=== PATIENT | male | born 1960 | race Caucasian/White ===

== ENCOUNTER 2017-10-26 14:22 | Emergency (ER) | payer MEDICAID, SELFPAY ==
[2017-10-26 14:23] VITALS: BP 167/96; PULSE 94; RESP 16; TEMP 36.9; O2SAT 98; BMI 23.7
--- NOTE | 2017-10-26 16:27 | ED.VISSUMM ---
- ER Visit Summary Date of Service: 10/26/17 Chief Complaint: Dental pain History of Present Illness: The patient is a 57 M presenting for evaluation secondary dental pain. Patient states over the course of the last 1 week he has had right maxillary upper facial gum and lip swelling. Patient reports that there is continued increasing pain associated with this worse with palpation and eating and drinking. He denies any presence of fevers. Physical Examination: Physical exam remarkable for HEENT exam. Patient has evidence of some upper lip swelling predominantly on the right. Oral exam shows focal gum swelling above the patient's right maxillary incisor with likely underlying fluctuance. Soft sublingual space, no trismus. Normal posterior oropharynx. Test Results: None indicated Emergency Department Course and Treatment: Patient presented for evaluation secondary to what appears to be a dental abscess. Patient was verbally consented for incision and drainage with an 18-gauge needle. I incised the area with an 18-gauge needle and a large amount of purulent material was expressed. Patient tolerated this with some difficulty. Patient will be placed on a course of clindamycin due to a penicillin allergy, Naprosyn, and Slayton for treatment of pain. He was given a list of dentists with which to follow-up Disposition: Discharge Impression: 1. Dental abscess 2. I&D by ED physician This note was generated with [employer] dictation software. It may contain incorrect words, spelling, and punctuation that were not noted in review of the chart prior to signing ED Disposition - Plan for ED Patient: Disposition: Home or Assisted Living Chief Complaint: Dental Diagnosis: Dental abscess Instructions: Dental Abscess Prescriptions: Hydrocodone Bitart/Apap 5-325 [Slayton 5MG-325MG] 1 tab PO Q6H PRN PRN 3 Days #12 tab PRN Reason: Pain Naproxen [Naprosyn] 500 mg PO BID PRN #20 tab Clindamycin [Cleocin] 300 mg PO 4X/DAY #80 cap Referrals: Dentist,Your [STAFF PHYSICIAN] -
--- NOTE | 2017-10-26 16:31 | ED.DCSUM_ITS ---
- ER Visit Summary Date of Service: 10/26/17 Chief Complaint: Dental pain History of Present Illness: The patient is a 57 M presenting for evaluation secondary dental pain. Patient states over the course of the last 1 week he has had right maxillary upper facial gum and lip swelling. Patient reports that there is continued increasing pain associated with this worse with palpation and eating and drinking. He denies any presence of fevers. Physical Examination: Physical exam remarkable for HEENT exam. Patient has evidence of some upper lip swelling predominantly on the right. Oral exam shows focal gum swelling above the patient's right maxillary incisor with likely underlying fluctuance. Soft sublingual space, no trismus. Normal posterior oropharynx. Test Results: None indicated Emergency Department Course and Treatment: Patient presented for evaluation secondary to what appears to be a dental abscess. Patient was verbally consented for incision and drainage with an 18-gauge needle. I incised the area with an 18-gauge needle and a large amount of purulent material was expressed. Patient tolerated this with some difficulty. Patient will be placed on a course of clindamycin due to a penicillin allergy, Naprosyn, and [place] for treatment of pain. He was given a list of dentists with which to follow-up Disposition: Discharge Impression: 1. Dental abscess 2. I&D by ED physician This note was generated with [employer] dictation software. It may contain incorrect words, spelling, and punctuation that were not noted in review of the chart prior to signing ED Disposition - Plan for ED Patient: Disposition: Home or Assisted Living Chief Complaint: Dental Diagnosis: Dental abscess Instructions: Dental Abscess Prescriptions: Hydrocodone Bitart/Apap 5-325 [[place]lake 5MG-325MG] 1 tab PO Q6H PRN PRN 3 Days #12 tab PRN Reason: Pain Naproxen [Naprosyn] 500 mg PO BID PRN #20 tab Clindamycin [Cleocin] 300 mg PO 4X/DAY #80 cap Referrals: Dentist,Your [STAFF PHYSICIAN] -
[2017-10-26] MEDS: Naproxen 500 MG Tablet PO (16:36)
[2017-10-26] MEDS: Clindamycin HCl 150 MG Capsule 300 MG PO (16:36)
== END 2017-10-26 16:50 | disposition home or self-care (01) ==
PROVIDERS: Emergency Provider Emergency Medicine; Family Provider Family Medicine; PCP Family Medicine
DX: K04.7 Periapical abscess without sinus (principal); Z88.0 Allergy status to penicillin
CPT/HCPCS: 41800; 99283

== ENCOUNTER 2017-12-07 06:43 | Emergency (ER) | payer MEDICAID, SELFPAY ==
[2017-12-07 06:45] VITALS: BP 166/89; PULSE 66; RESP 21; TEMP 36.4; O2SAT 98; BMI 26.3
[2017-12-07] MEDS: HYDROmorphone 1 MG/ML Syringe IV (06:57)
[2017-12-07] MEDS: 0.9% Normal Saline 1,000 ML 150 ML IV (06:57)
[2017-12-07] MEDS: Aspirin 81 MG TAB.CHEW 324 MG PO (06:57)
[2017-12-07] MEDS: Ondansetron 4 MG/2 ML Vial IV (06:57)
--- NOTE | 2017-12-07 06:58 | ED.DCSUM_ITS ---
- ER Visit Summary Date of Service: 12/07/17 Chief Complaint: [Chest pain] History of Present Illness: The patient is a 57 M [presents the emergency department complaint of chest discomfort started this morning about 2 hours ago. Patient states that he has pain more in his left back and upper abdomen that started somewhat suddenly. Patient has never had discomfort like this before. Patient also has been having pain in his hands for several months and has been seeing his primary care physician for this. Patient recently was started on prednisone as well as meloxicam and recently started on lisinopril for hypertension. Patient denies recent travel or surgery. Patient denies nausea or vomiting. Patient has not had any fever. He has not had a cough. Patient rates his pain an 8 out of 10 describes it as sharp and stabbing.] Physical Examination: [HEENT-PERRLA, EOMI. Cranial nerves II through XII grossly intact. TMs clear. Mucous membranes moist. No adenopathy. Cardiovascular-regular rate and rhythm without murmur or ectopy Lungs-clear to auscultation, chest wall stable without crepitus or subcu emphysema Abdomen-normoactive bowel sounds, soft. Patient has some tenderness in the epigastric region and left lower quadrant. There is no rebound, rigidity, or perineal signs. Patient does have some CVA tenderness on the left. Extremities-intact ?4, normal range of motion, normal pulses, atraumatic] Test Results: [EKG obtained on arrival shows sinus rhythm with a ventricular rate of 70 bpm with old anterior septal infarct noted. When compared with prior EKG from 2012 the Q waves anteriorly are new.] Emergency Department Course and Treatment: [Patient received aspirin in the emergency department. Lab workup and CT imaging of the abdomen and pelvis was ordered as well as a chest x-ray. CARE patient will be turned over to morning physician awaiting lab results as well as imaging results and final disposition] Treatment Plan: [] Disposition: [] Impression: [] This note was generated with [employer] dictation software. It may contain incorrect words, spelling, and punctuation that were not noted in review of the chart prior to signing ED Disposition - Plan for ED Patient: Chief Complaint: Chest Pain Referrals: Alex Ortega NP-C [Primary Care Provider] -
--- NOTE | 2017-12-07 07:08 | ED.RN ---
MD AWARE OF MONITOR RHYTHM.
[2017-12-07 07:09] LABS: Absolute Lymphocyte Count 2.08 X10^3/ul (0.83-4.51); Basophil# 0.03 X10^3/uL; Basophil% 0.4 % (0-1); Eosinophil# 0.41 X10^3/uL; Eosinophils% 5.9 % (0-5); Hemoglobin 14.9 g/dl (13.0-16.5); Lymphocyte # 2.08 X10^3/ul (4.0); Lymphocyte % 29.8 % (19-41); Mean Corp Hgb Conc 33.9 g/gl (32-36); Mean Corpuscular Hgb 30.8 pg (27.0-32.0); Mean Corpuscular Volume 91.1 fL (80-94); Mean Platelet Vol. 9.8 fl (6.2-12.0); Monocyte# 0.49 X10^3/uL; Neutrophil # 3.96 X10^3/uL (2.7-7.7); Neutrophil % 56.8 % (47-70); POSITIVE COUNT NO; POSITIVE DIFFERENTIAL NO; POSITIVE MORPHOLOGY NO; Platelet Count 208 K/mm3 (150-450); RBC Distribution Width CV 12.4 % (11.6-14.6); RBC Distribution Width SD 41.4 fl (35.1-43.9); Red Blood Count 4.83 M/mm3 (4.6-6.2)
[2017-12-07 07:19] LABS: Anion Gap 8 (5-15); BUN 19 mg/dL (7-18); BUN/Creat Ratio 20.2 RATIO (10-20); Calcium,Total 8.6 mg/dL (8.5-10.1); Chloride 107 mmol/L (98-107); Creatinine, Serum 0.94 mg/dL (0.70-1.30); EST Glomerular Filtration Rate 87 mL/min (>60); Est Glom Filt Rate - Afr Amer 105 mL/min (>60); Estimated Creatinine Clearance 92.87 ml/min; Glucose 96 mg/dL (74-106); Lipase 299 U/L (73-393); Potassium 4.2 mmol/L (3.5-5.1); Sodium Level 141 mmol/L (136-145)
[2017-12-07 07:43] VITALS: BP 158/84; PULSE 79; RESP 18; O2SAT 98
[2017-12-07 08:33] LABS: AST(SGOT) 20 U/L (15-37); Alanine Aminotransfer ALT/SGPT 28 U/L (16-61); Albumin, Serum 3.6 g/dL (3.2-5.0); Alkaline Phosphatase 90 U/L (45-117); Bilirubin, Direct 0.09 mg/dL (0.00-0.30); Globulin 3.5 g/dL (2.2-4.2); Protein, Total 7.1 g/dL (6.4-8.2)
--- NOTE | 2017-12-07 08:51 | ED.DEP ---
ED Disposition - Plan for ED Patient: Disposition: Home or Assisted Living Chief Complaint: Chest Pain Instructions: ED Abdominal Pain Unkn Cause Referrals: Alex Ortega NP-Adriana [Primary Care Provider] - As Needed Delmar Wilson MD [NON-STAFF] - As soon as possible Additional Instructions: Your labs were unremarkable today. You need to follow-up with a hand specialist I gave her the name of Dr. Delmar Wilson a hand surgeon at the [facility] [place] [facility] [place] evaluation of your hand pain which may or may not be secondary to carpal tunnel. Take your current medications with food on your stomach they may be irritating her stomach.
[2017-12-07 09:09] VITALS: BP 150/83; PULSE 58; RESP 16; O2SAT 97
== END 2017-12-07 09:09 | disposition home or self-care (01) ==
PROVIDERS: Emergency Medicine; Emergency Provider Emergency Medicine; Family Provider Nurse Practitioner Primary Care; PCP Nurse Practitioner Primary Care
DX: M79.643 Pain in unspecified hand (principal); R20.0 Anesthesia of skin; R10.13 Epigastric pain; I10 Essential (primary) hypertension; K57.90 Diverticulosis of intestine, part unspecified, without perforation or abscess without bleeding
CPT/HCPCS: 71045; 74176; 80048; 80076; 83690; 84484; 85025; 93005; 96361; 96374; 96375; 99285; J7030; A4216; J2405

== ENCOUNTER 2018-03-23 16:44 | Emergency (ER) | payer MEDICAID, SELFPAY ==
[2018-03-23 16:45] VITALS: BP 165/92; PULSE 87; RESP 16; TEMP 36.7; O2SAT 99; BMI 26.0
--- NOTE | 2018-03-23 17:03 | ED.VISSUMM ---
- ER Visit Summary Date of Service: 03/23/18 Chief Complaint: Left leg rash History of Present Illness: The patient is a 57 M presenting for evaluation secondary to a left leg rash. Patient reports that he has been remodeling his house, and spending a lot of time on his hands and knees scrubbing as he is refinishing a floor. States that he got an abrasion on his left leg, and since Monday he has been breaking out in a rash. This is extended down to his foot and up to his groin. He states that it is minimally painful. Patient states that he has not had any constitutional symptoms such as fevers. Review of systems otherwise negative. Physical Examination: Physical exam unremarkable except for examination of the left lower extremity. There is cellulitic changes noted of the lower leg, with some extension up to the mid thigh. No subcutaneous emphysema normal pulses normal range of motion normal sensation. No evidence of fluctuance. Test Results: None indicated Emergency Department Course and Treatment: Patient presented secondary to a rash. Physical exam consistent with cellulitis. Patient has no evidence of fevers, there is no indication for workup for sepsis. Will be started on a course of doxycycline. He was instructed that he needs to follow-up with his primary care physician at the earliest available appointment next week. He was given strict return instructions he voiced understanding his own words. Patient was discharged on a course of doxycycline. Disposition: Discharge Impression: 1. Left leg cellulitis This note was generated with [employer] dictation software. It may contain incorrect words, spelling, and punctuation that were not noted in review of the chart prior to signing ED Disposition - Plan for ED Patient: Disposition: Home or Assisted Living Chief Complaint: Cellulitis Diagnosis: Left leg cellulitis Instructions: Discharge Instructions for Cellulitis Prescriptions: Doxycycline 100 mg PO BID #20 cap Referrals: Beena Killian MD [Primary Care Provider] - 3-5 Days
--- NOTE | 2018-03-23 17:13 | ED.DCSUM_ITS ---
- ER Visit Summary Date of Service: 03/23/18 Chief Complaint: Left leg rash History of Present Illness: The patient is a 57 M presenting for evaluation secondary to a left leg rash. Patient reports that he has been remodeling his house, and spending a lot of time on his hands and knees scrubbing as he is r efinishing a floor. States that he got an abrasion on his left leg, and since Monday he has been breaking out in a rash. This is extended down to his foot and up to his groin. He states that it is minimally painful. Patient states that he has not had any constitutional symptoms such as fevers. Review of systems otherwise negative. Physical Examination: Physical exam unremarkable except for examination of the left lower extremity. There is cellulitic changes noted of the lower leg, with some extension up to the mid thigh. No subcutaneous emphysema normal pulses nor mal range of motion normal sensation. No evidence of fluctuance. Test Results: None indicated Emergency Department Course and Treatment: Patient presented secondary to a rash. Physical exam consistent with cellulitis. Patient has no evidence of fevers, there is no indication for workup for sepsis. Will be started on a course of doxycycline. He was instructed that he needs to follow-up with his primary care physician at the earliest available appointment next week. He was given strict return instructions he voiced understanding his own words. Patient was discharged on a course of doxycycline. Disposition: Discharge Impression: 1. Left leg cellulitis This note was generated with [employer] dictation software. It may contain incorrect words, spelling, and punctuation that were not noted in review of the chart prior to signing ED Disposition - Plan for ED Patient: Disposition: Home or Assisted Living Chief Complaint: Cellulitis Diagnosis: Left leg cellulitis Instructions: Discharge Instructions for Cellulitis Prescriptions: Doxycycline 100 mg PO BID #20 cap Referrals: Beena Killian MD [Primary Care Provider] - 3-5 Days
== END 2018-03-23 17:29 | disposition home or self-care (01) ==
PROVIDERS: Emergency Provider Emergency Medicine; Family Provider Internal Medicine; PCP Internal Medicine
DX: L03.116 Cellulitis of left lower limb (principal)
CPT/HCPCS: 99282

== ENCOUNTER 2019-04-13 22:30 | Emergency (ER) | payer MEDICAID, SELFPAY ==
[2019-04-13 22:32] VITALS: BP 161/87; PULSE 83; RESP 16; TEMP 37.2; O2SAT 97; BMI 26.4
--- NOTE | 2019-04-13 23:36 | ED.VIS.GEN ---
History of Present Illness Chief Complaint: Laceration Narrative: Patient is a 58-year-old male who presents with a left hand laceration. This occurred about 6 hours ago. He cut it on a table saw. He sustained a laceration to his left palm. He was trying to manage at home with a dressing but is developed increased pain and noticed that his fourth and fifth fingers felt cold. No numbness, tingling, weakness. He is uncertain of his last tetanus immunization. He is not diabetic. Past Medical History - Allergies and Home Meds Allergies/Adverse Reactions: Allergies Penicillins Allergy (Verified 04/13/19 22:32) Other Primary Care Physician: Beena Killian MD [Primary Care Provider] - Past Medical History: None Smoking Status: Never smoker Review of Systems All systems negative except as indicated General: Denies: Fever Cardiovascular: Denies: Chest pain Respiratory: Denies: Dyspnea Gastrointestinal: Denies: Nausea, Vomiting Musculoskeletal: Denies: Myalgias Skin: Denies: Rash Neurological: Denies: Headache Physical Exam Vital Signs/Narrative: Vital Signs Temp Pulse Resp BP Pulse Ox 04/13/19 22:32 98.9 F 83 16 161/87 H 97 Inital Vital Signs reviewed: Yes General: Well nourished Head: Normocephalic Eyes: EOMI ENT: Moist mucous membranes Neck: Supple Cardiovascular: Regular rate Respiratory: No distress Extremities: - - Laceration to the left palm, no active bleeding, brisk capillary refill distally, fingers are warm, active full range of motion, normal flexion of all the digits active full range of motion of the hand sensation is normal to light touch Skin: Normal color Neurological: Alert Psychological: Normal affect Diagnostic/Tx/Re-eval - Medical Decision Making X-ray on my review shows no acute bony injury. Patient has a laceration that measures 3 cm in length to the left palm along with some superficial macerated tissue around this. The laceration was anesthetized with a total of 5 cc of 1% lidocaine without epinephrine. Good anesthesia was achieved. Wound was cleansed with sterile saline. Laceration was closed with 5 simple interrupted 4?0 nonabsorbable sutures. Given the associated soft tissue injury I will place on prophylactic antibiotics. Patient was instructed on local wound care. Dressings were applied. Patient understands to return for new or worsening symptoms and was discharged home. ED Disposition - Plan for ED Patient: Disposition: Home or Assisted Living Diagnosis: Hand laceration Instructions: LACERATION, Hand Prescriptions: Cephalexin [Keflex] 500 mg PO Q6 #40 cap Prescription Printed Referrals: Beena Killian MD [Primary Care Provider] -
[2019-04-13] MEDS: HYDROcodone Bitartrate/Apap 5/325 Tablet PO (23:42)
[2019-04-13] MEDS: Diphth,Pertuss(Acell),Tet Vac 0.5 ML Vial IM (23:42)
--- NOTE | 2019-04-13 23:50 | RAD_ITS ---
HISTORY: HISTORY: LACERATION TO LEFT HAND BY TABLE SAWLACERATION ON PINKY FINGER AND DOWN SIDE XR Hand Min 3 Views COMPARISON: None FINDINGS: # of images incl. paperwork: 3 3 views of the left hand. Arthritis is present. It is greatest at the first metacarpal phalangeal joint. It is manifested by joint space loss, subluxation, osteophytes, and bony remodeling. Some inner phalangeal joint arthritis is present as well. The radiocarpal joint may be minimally narrowed. No acute fracture is perceived. No foreign body is demonstrated. Soft tissue swelling on the dorsum of the fifth digit, at the level of the middle phalanx is suggested. No subcutaneous gas is perceived. No foreign body is demonstrated. No fractures present. RAD/Hand Min 3 Views IMPRESSION: No evidence of osseous injury or foreign body to the fifth digit. Arthritis greatest at the first metacarpal phalangeal joint at 0110 Reported and signed by: Dean Angelo MD Electronically Signed: Dean Angelo MD at 1:09 EST Tel , Service support ,
[2019-04-14 00:43] VITALS: BP 156/94; PULSE 69; RESP 16
== END 2019-04-14 00:45 | disposition home or self-care (01) ==
PROVIDERS: Emergency Provider Emergency Medicine; Family Provider Internal Medicine; PCP Internal Medicine
DX: S61.412A Laceration without foreign body of left hand, initial encounter (principal); W27.0XXA Contact with workbench tool, initial encounter; Y93.9 Activity, unspecified; Y92.9 Unspecified place or not applicable
CPT/HCPCS: 12002; 73130; 90715; 99284

== ENCOUNTER 2019-04-23 06:26 | Emergency (ER) | payer MEDICAID, SELFPAY ==
[2019-04-23 06:27] VITALS: BP 181/8; PULSE 79; RESP 16; TEMP 36.7; O2SAT 98; BMI 25.7
--- NOTE | 2019-04-23 06:48 | ED.VIS.EYE ---
History of Present Illness Chief Complaint: Eye Problem Informant: Patient Location: Left Eye Onset: Yesterday Context: Sudden Onset - awoke w/ pain Timing: Continuous Current Severity: Severe Maximum Severity: Severe Worsened by: light Relieved by: closing eye Associated Symptoms - Eyes: Foreign body sensation, Pain, Photophobia, Redness Visual Changes: left: Blurred vision - wears contacts and keeping it out of L eye since sx present History of injury: Uncertain - working with lots of sawdust the day before; went to bed w/o any eye pain, woke up and pain significant Visual correction: Corrective contact lenses Narrative: Patient has his right contact in, but has left his left contact out since the pain is been there. Recent Illness/Hospitalization: No - Past Medical History (1) GERD (gastroesophageal reflux disease) Status: Chronic Past Medical History - Allergies and Home Meds Allergies/Adverse Reactions: Allergies Penicillins Allergy (Verified 04/23/19 06:33) Other Primary Care Physician: Beena Killian MD [Primary Care Provider] - Smoking Status: Never smoker Drugs: None Review of Systems General: Denies: Chills, Fever, Sweats Eyes: Reports: Blurred vision - left, - - pain, redness, tearing left eye. Denies: Diplopia ENT: Denies: Rhinorrhea, Sore throat Respiratory: Denies: Dyspnea, Cough, Dyspnea on exertion Physical Exam Eyelid: Normal inspection Right Conjunctiva/Sclera: Normal inspection Left Conjunctiva/Sclera: Diffuse focal injection - diffuse Left Cornea: Fluorescein dye uptake - small area central cornea 1-2mm, superficial; not cloudy/ulcer, Foreign body - fine debris present; floats along cornea when pt blinks; more visible w/ fluorescein staining. Extraocular Motion: Normal exam, No pain, No palsy, No nystagmus Pupils: Normal accomodation, PERRL Anterior chamber: Normal exam, Deep and quiet Vital Signs/Narrative: Vital Signs Temp Pulse Resp BP Pulse Ox 04/23/19 06:27 98.0 F 79 16 181/8 H 98 Inital Vital Signs reviewed: Yes General: Well nourished, Well developed Head: Normocephalic, Atraumatic Neurological: Alert, Oriented x3, Cranial nerves II-XII grossly intact, Normal Strength, Normal Sensation, Normal Gait Psychological: Normal affect, Normal Mood Diagnostic/Tx/Re-eval - Treatment and Re-Evaluation Foreign body removal: Cotton tip swab, Irrigation Residual rust ring: No Irrigation: NS Tetracaine: left eye - Medical Decision Making Initially it appeared patient had a small central corneal abrasion along with quite a bit of fine floating debris. His eye was anesthetized with tetracaine, which took away his pain temporarily. It was irrigated with saline via Petey lens, all of the debris was gone on reevaluation but it appeared to be a punctate foreign body without a rust ring at the site of the abrasion/dye uptake. I remove this along with a couple of superficial layers of local cornea with a cotton tip swab. There was no residual foreign body after the patient blinked several times. Negative Chet sign. He is discharged on Ciloxan and advised to follow-up with ophthalmology if he still has pain or vision issues after 3 or 4 days. He is comfortable with that plan. ED Disposition - Plan for ED Patient: Disposition: Home or Assisted Living Diagnosis: Corneal abrasion, left, Corneal foreign body Instructions: ED Corneal Abrasion, CORNEAL FOREIGN BODY, Removed Prescriptions: Ciprofloxacin 0.3% [Ciloxan] 1 drp LEFT EYE Q4 5 Days #1 bottle Prescription Printed Referrals: Yessi Pelayo MD [STAFF PHYSICIAN] - 3-5 Days if not improving
[2019-04-23] MEDS: Fluorescein 1 MG STRIP 1 STRIP LEFT EYE (06:51)
[2019-04-23] MEDS: Tetracaine 0.5% Ophthalmic Bottle 1 DRP LEFT EYE (06:52)
== END 2019-04-23 07:54 | disposition home or self-care (01) ==
PROVIDERS: Emergency Provider Emergency Medicine; Family Provider Internal Medicine; PCP Internal Medicine
DX: T15.02XA Foreign body in cornea, left eye, initial encounter (principal); X58.XXXA Exposure to other specified factors, initial encounter; Y93.9 Activity, unspecified; Y92.9 Unspecified place or not applicable; K21.9 Gastro-esophageal reflux disease without esophagitis
CPT/HCPCS: 99284; J7030

== ENCOUNTER 2020-09-22 08:38 | Inpatient (IN) | payer MEDICAID, SELFPAY ==
[2020-09-22] VITALS (10 sets, daily range): BP systolic 133–156; BP diastolic 88–100; PULSE 79–97; RESP 16–20; TEMP 36.6–36.9; O2SAT 96–97; BMI 25.7; BMI 26.7
--- NOTE | 2020-09-22 08:47 | CT_ITS ---
STUDY: CTA CHEST REASON FOR EXAM: Male, 60 years old. Shortness of breath for several months. RADIATION DOSAGE (If Supplied By Facility): CTDIvol = ( 11.39 ) mGy, DLP = ( 463.11 ) mGycm TECHNIQUE: The examination was performed with the intravenous administration of IV 100mL Isovue-370. Post-processing of the angiographic images was performed, with multiplanar reformation and 3D reconstruction. Individualized dose optimization techniques were used for this CT. COMPARISON: Comparison is made with prior chest radiograph done earlier today. FINDINGS: Small benign appearing bilateral axillary lymph nodes. Normal enhancement of the main pulmonary artery and right and left pulmonary arteries. Normal enhancement of the bilateral peripheral pulmonary arteries. There is no demonstrated pulmonary embolism. There is atherosclerotic calcification of the aortic arch with tortuosity. There is no demonstrated aortic dissection. Normal heart and pericardium. There are visualized mediastinal lymph nodes, which are within normal size limits, and with normal morphology. Normal hilar regions. Normal visualized trachea and bronchi. The lungs are well expanded. Minimal increased linear markings at the lung bases more prominent at the right lung base. Minimal increased interstitial markings in the right middle lobe as well as in the lingular segment of the left upper lobe. Focal area of confluence in the medial aspect of the right upper lobe abutting the right minor fissure. There is a 6 mm noncalcified nodule in the right lower lobe as seen on axial image #120. Normal pleura. Normal chest wall structures. Normal osseous structures. Normal visualized upper abdomen. CT/CTA Chest W/WO Contrast IMPRESSION: There is no evidence of a pulmonary embolism. 6 mm noncalcified nodule in the right lower lobe. A 12 month follow-up examination is suggested. Mild increased septal markings in both lungs as described. Mild degree of the vascular congestion should be ruled out. Electronically Signed: Nelson Monzon MD at 10:21 EDT , Service support ,
--- NOTE | 2020-09-22 08:48 | RAD_ITS ---
STUDY: X-RAY CHEST REASON FOR EXAM: Male, 60 years old. Chest pain TECHNIQUE: Single AP portable view of the chest. COMPARISON: Comparison is made with prior study 12/07/2017. FINDINGS: EKG electrodes are seen. Mild degree of increased interstitial markings suggestive of mild degree of the vascular congestion. There is no demonstrated pleural abnormality. There is borderline cardiomegaly. Normal mediastinum and wicho. Normal visualized pulmonary arteries. There is atherosclerotic calcification of the aortic arch with tortuosity. Normal visualized thoracic spine. Normal visualized ribs, clavicles, and shoulders. There is no demonstrated abnormality of the visualized soft tissue structures of the upper abdomen. RAD/Chest 1 View (Portable) IMPRESSION: Borderline cardiomegaly. Findings suggestive of vascular congestion. Electronically Signed: Nelson Monzon MD at 10:02 EDT , Service support ,
--- NOTE | 2020-09-22 08:48 | EKG12_ITS ---
Test Reason : CP Blood Pressure : / mmHG Vent. Rate : 085 BPM Atrial Rate : 085 BPM P-R Int : 194 ms QRS Dur : 108 ms QT Int : 408 ms P-R-T Axes : 053 072 069 degrees QTc Int : 485 ms Normal sinus rhythm ST & T wave abnormality, consider lateral ischemia Prolonged QT Abnormal ECG Confirmed by PHILIP FLOOD, VINCENT ([id number]), slot editor TONG YOUNGER ([id number]) on 09/25/2020 8:02:53 AM Referred By: DAVID LYNN Confirmed By:VINCENT PALACIOS MD
--- NOTE | 2020-09-22 08:48 | ED.VIS.CHEST ---
HPI History of Present Illness Chief Complaint: Chest Pain Informant: patient Onset/Context/Timing Onset: Weeks Activity at onset: gradual Timing: Intermittent Quality: Positive for Heaviness and Tightness Location: Substernal Current Severity: Moderate Maximum Severity: Moderate Worsened By: Exertion and Breathing Relieved By: Nothing Narrative Narrative: Patient is a 60-year-old male who is on no daily medications who presents to the emergency department with intermittent chest pain. The patient states his been going on for the past 6 weeks. States if he walks a distance or exerts himself, he gets tightness and feels like he cannot catch his breath. He denies fever or chills. He states sometimes, the pain will radiate to his arm or his back. He states he feels like he has a difficult time catching his breath. He denies any history of coronary vascular disease. He states he does not smoke. He is unsure of his family history. He states he is never had chest pain like this before. Prior Similar Symptoms: No Recent Illness/Hospitalization: No PFSH PFSH Medical History (Updated 09/22/20 @ 08:53 by Radhika Jensen) Hypertension Home Medications NK 09/22/20 [History Last Taken Unknown] Allergy/AdvReac Type Severity Reaction Status Date / Time Penicillins Allergy Other Verified 09/22/20 08:39 Social History Smoking Status: Never smoker ROS ROS ED Constitutional Constitutional ED: Denies chills or fever(s) Eyes Eyes: Denies blurry vision or change in vision ENT ENT ED: Denies ear pain or sore throat Cardiovascular Cardiovascular: Reports chest pain Respiratory/Chest Respiratory/Chest: Reports dyspnea Gastrointestinal Gastrointestinal: Denies abdominal pain, nausea or vomiting Genitourinary Genitourinary ED: Denies dysuria or urinary frequency Musculoskeletal Musculoskeletal: Denies arthralgias or myalgias Integumentary Denies rash Neurologic Neurologic: Denies headache(s) or paresthesias Psychiatric Psychiatric: Denies anxiety or depression Endocrine Endocrinology: Denies polydipsia or polyuria Allergic/Immunologic Allergic/Immunologic ED: Denies urticaria EXAM Physical Exam Const Vital Signs: 09/22/20 08:39 09/22/20 08:53 09/22/20 09:55 Temperature 97.8 F Temperature Source Temporal Pulse Rate 94 87 Respiratory Rate 18 20 H Respiratory Effort Normal Non-Labored Blood Pressure 147/92 H 148/95 H Blood Pressure Mean 110 112 Pulse Ox 96 96 97 Oxygen Delivery Method Room Air Room Air Room Air Positive well nourished and well developed General Appearance ED: well developed HEENT Reports normocephalic, head/scalp atraumatic and moist mucous membranes Eyes PERRL and EOMs intact bilaterally Neck no lymphadenopathy and supple General: Negative for tenderness Chest Wall inspection of chest normal Resp normal respiratory effort and clear to auscultation bilaterally Cardio regular rate, regular rhythm and no murmurs GI normal to inspection, nondistended, normoactive bowel sounds Palpation: Negative for tender, guarding or rebound tenderness present Back/Spine no CVA tenderness Cervical Spine: Negative for cervical spine tenderness Thoracic Spine / Upper Back: Negative for thoracic spinal tenderness Extremity normal to inspection General Extremety ED: Negative for tenderness Neuro oriented x3 and CN's II-XII intact bilaterally Neuro Narrative: No focal deficits appreciated. Sensorium / Orientation: alert Psych mental status grossly normal Skin no rashes or lesions noted, no wounds and skin turgor normal Heart Score History: Moderately Suspicious ECG: Significant ST-Depression Age: >45 - <65 years Risk Factors: 1 or 2 Risk Factors Troponin: >/=3 x Normal Limit Score: 7 MDM MDM MDM Narrative Medical decision making narrative: Patient is a 60-year-old male who presents to the emergency department with exertional dyspnea and chest pain. His EKG is abnormal. He has an incomplete left bundle branch block with lateral ST depression. He has been having symptoms for about 6 weeks. With his exertional dyspnea, I did want to rule out pulmonary embolus. Screening labs were obtained. His cardiac enzymes are elevated at 2.5. I did discuss this with Dr. Maldonado on-call for cardiology who agreed with plan for heparinization and CTA. CTA does not show evidence of acute pulmonary embolus. The patient symptoms have improved. He is started on aspirin and heparin. At this point, he will be admitted to the PCU for likely cardiology intervention. Impression 1. NSTEMI Lab Data Attestation: I reviewed the patient's lab results. Labs: Laboratory Results - last 24 hr 09/22/20 09/22/20 09/22/20 08:48 08:48 09:41 WBC 7.1 RBC 5.11 Hgb 15.5 Hct 46.3 MCV 90.6 MCH 30.3 MCHC 33.5 RDW Std Deviation 42.5 RDW Coeff of Marquita 12.9 Plt Count 189 MPV 10.4 Immature Gran % (Auto) 0.300 Neut % (Auto) 56.7 Lymph % (Auto) 29.2 [place] % (Auto) 10.2 H Eos % (Auto) 3.0 Baso % (Auto) 0.6 Absolute Neuts (auto) 4.0 Absolute Lymphs (auto) 2.07 Nucleated RBC % 0 PT 13.3 INR 1.1 APTT 28.6 Sodium 140 Potassium 4.3 Chloride 108 H Carbon Dioxide 27.0 Anion Gap 5 BUN 27 H Creatinine 1.20 Estim Creat Clear Calc 70.06 Est GFR (MDRD) Af Amer 79 Est GFR (MDRD) Non-Af 65 BUN/Creatinine Ratio 22.5 H Glucose 110 H Calcium 9.2 Troponin I 2.510 H* Radiography Chest X-Ray - ED: 1 View, Read by ED Physician, Heart, Lungs, Mediastinum, Bony Structures and CHF Diagnostic Testing: Radiology Impression Chest CTA 09/22/20 08:47 IMPRESSION: There is no evidence of a pulmonary embolism. 6 mm noncalcified nodule in the right lower lobe. A 12 month follow-up examination is suggested. Mild increased septal markings in both lungs as described. Mild degree of the vascular congestion should be ruled out. Electronically Signed: Nelson Monzon MD at 10:21 EDT , Service support , Chest X-Ray 09/22/20 08:48 IMPRESSION: Borderline cardiomegaly. Findings suggestive of vascular congestion. Electronically Signed: Nelson Monzon MD at 10:02 EDT , Service support , EKG Initial EKG: Attestation: I personally reviewed and interpreted this EKG as follows: Interpretation: Sinus Rhythm, S-T Depression and Non-Specific ST Changes Prior EKG tracings: available for review Prior: Changed Critical Care Time Critical Care Time: Yes Critical care time (excluding procedures): 30-74 minutes (35), Including time spent:, Discussing w/Patient &/or Family/Public Health Staff Nurse, Discussing w/Consultants, Arranging Admission or Transfer and Performing Direct Patient Care at Bedside Discharge Plan Triage Chief Complaint: Chest Pain Other Complaint: Shortness of Breath ED Provider: Shakir Ding Dx/Rx/DC Orders Prescriptions: No Action NK RF: 0 Primary Care Provider: Beena Killian
[2020-09-22 08:54] LABS: Absolute Lymphocyte Count 2.07 X10^3/uL (0.83-4.51); Basophil# 0.04 X10^3/uL; Basophil% 0.6 % (0-1); Eosinophil# 0.21 X10^3/uL; Hematocrit 46.3 % (40-54); Hemoglobin 15.5 g/dL (13.0-16.5); Lymphocyte # 2.07 X10^3/ul (0.83-4.51); Lymphocyte % 29.2 % (19-41); Mean Corp Hgb Conc 33.5 g/dL (32-36); Mean Corpuscular Hgb 30.3 pg (27.0-32.0); Mean Corpuscular Volume 90.6 fL (80-94); Mean Platelet Vol. 10.4 fl (6.2-12.0); Monocyte# 0.72 X10^3/uL; Monocyte% 10.2 % (0-10); NRBC Flagged by Analyzer 0 % (0-5); Neutrophil # 4.02 X10^3/uL (2.7-7.7); Neutrophil % 56.7 % (47-70); Platelet Count 189 K/mm3 (150-450); RBC Distribution Width CV 12.9 % (11.6-14.6); RBC Distribution Width SD 42.5 fl (35.1-43.9); Red Blood Count 5.11 M/mm3 (4.6-6.2); White Blood Count 7.1 K/mm3 (4.4-11.0)
[2020-09-22] MEDS: Aspirin 81 MG TAB.CHEW 324 MG PO (08:55)
[2020-09-22 09:17] LABS: Anion Gap 5 (5-15); BUN 27 mg/dL (7-18); BUN/Creat Ratio 22.5 RATIO (10-20); Calcium,Total 9.2 mg/dL (8.5-10.1); Chloride 108 mmol/L (98-107); EST Glomerular Filtration Rate 65 mL/min (>60); Est Glom Filt Rate - Afr Amer 79 mL/min (>60); Estimated Creatinine Clearance 70.06 ml/min; Glucose 110 mg/dL (74-106); Potassium 4.3 mmol/L (3.5-5.1); Sodium Level 140 mmol/L (136-145)
[2020-09-22 09:58] LABS: International Normalized Ratio 1.1; Prothrombin Time (Protime)PT. 13.3 SECONDS (11.7-14.9)
[2020-09-22 09:59] LABS: Partial Thromboplast Time 28.6 Seconds (24.1-36.2)
[2020-09-22] MEDS: Heparin Injection (Vial) 5,000 UNIT/ML VIAL 6000 UNIT IV (10:42)
[2020-09-22] MEDS: HEPARIN/D5w 25,000 UNITS 25,000 UNITS/250 ML IV.SOLN. 12 UNITS IV (10:44)
--- NOTE | 2020-09-22 11:09 | ECHOCS_ITS ---
Reason For Study: S/P GA Procedure This was a 2D Doppler, Color Flow transthoracic echocardiogram. The study was technically difficult. Exam performed portable in patient room. Left Ventricle Moderately dilated left ventricle. The estimated ejection fraction is EF 15-20% %. Right Ventricle Normal right ventricle. Normal systolic function. Atria The left atrium is moderately enlarged. Normal right atrium. Mitral Valve The mitral valve is structurally normal. No prolapse or stenosis seen. Moderately severe (3+) anteriorly directed mitral valve insufficiency. Tricuspid Valve Normal tricuspid valve. Aortic Valve Aortic sclerosis, no stenosis. Pulmonic Valve The pulmonic valve is not well visualized. Great Vessels Normal aortic root. Pericardium/Pleural No pericardial effusion. Medication Diluted definity 2ml given slow IV push to enhance endocardial definition. MMode/2D Measurements & Calculations LVIDd: 6.0 cm IVSd: 1.0 cm Ao root diam: 3.3 cm LVIDs: 5.4 cm LVPWd: 1.0 cm RVDd: 3.8 cm FS: 10.1 % LAV(MOD-bp): 131.3 ml LVAd ap4: 45.0 cm2 SV(MOD-sp4): 27.8 ml LAV(MOD-bp) Indexed: 63.0 ml/m2 LVLd ap4: 8.9 cm LAV(MOD-sp2): 150.5 ml EDV(MOD-sp4): 182.3 ml LAV(MOD-sp4): 106.4 ml EDV(sp4-el): 193.3 ml LVAs ap4: 40.4 cm2 LVLs ap4: 8.4 cm ESV(MOD-sp4): 154.5 ml ESV(sp4-el): 165.2 ml EF(MOD-sp4): 15.3 % EF(sp4-el): 14.6 % SV(sp4-el): 28.2 ml LA A4 area: 30.5 cm2 LA dimension(2D): 4.6 cm RA A4 area: 17.6 cm2 Time Measurements MV dec time: 0.12 sec Doppler Measurements & Calculations MV E max emile: 120.5 cm/sec Lat Peak E' Emile: 7.3 cm/sec Med Peak E' Emile: 4.2 cm/sec MV A max emile: 62.7 cm/sec E/E' lat: 16.4 E/E' med: 28.5 MV E/A: 1.9 Ao V2 max: 98.3 cm/sec LV V1 max: 58.2 cm/sec PA V2 max: 76.9 cm/sec Ao max P.9 mmHg LV V1 max P.4 mmHg TR max emile: 254.0 cm/sec TR max P.8 mmHg ECHO/Echo Complete W/ Contrast Interpretation Summary The estimated ejection fraction is EF 15-20% %. Severe LV systolic function with anteroapical,septal and infeobasal Hypokinesia Moderate LAE moderate-severe MR Ordering Physician: Vidhya Vazquez Referring Physician: JULIUS MYLES Performed By: Coby Olvera RDCS
--- NOTE | 2020-09-22 11:15 | EKG12_ITS ---
Test Reason : AM EKG Blood Pressure : / mmHG Vent. Rate : 085 BPM Atrial Rate : 085 BPM P-R Int : 194 ms QRS Dur : 118 ms QT Int : 424 ms P-R-T Axes : 062 061 044 degrees QTc Int : 504 ms Normal sinus rhythm ST & T wave abnormality, consider lateral ischemia Prolonged QT Abnormal ECG When compared with ECG of 22-SEP-2020 11:40, MANUAL COMPARISON REQUIRED, DATA IS UNCONFIRMED Confirmed by BELLA FLOOD, LISA ([id number]), clinical editor TONG YOUNGER ([id number]) on 09/25/2020 8:06:47 AM Referred By: PRAMOD Confirmed By:LISA BLANCO MD
[2020-09-22 11:34] LABS: Hemoglobin A1c 5.4 % (3.8-5.6)
[2020-09-22 11:36] LABS: AST(SGOT) 38 U/L (15-37); Alanine Aminotransfer ALT/SGPT 32 U/L (16-61); Albumin, Serum 3.9 g/dL (3.2-5.0); Alkaline Phosphatase 105 U/L (45-117); Bilirubin, Direct 0.15 mg/dL (0.00-0.30); Cholesterol 206 mg/dL (200); Globulin 3.5 g/dL (2.2-4.2); High Density Lipoprotein 46 mg/dL; Protein, Total 7.4 g/dL (6.4-8.2); Triglycerides 84 mg/dL; Very Low Density Lipoprotein 17 mg/dL (5-40)
--- NOTE | 2020-09-22 11:41 | PCM.HP.STD ---
[facility] - General General Date of Admission: 09/22/20 Date of Service: 09/22/20 Chief Complaint: Chest pain, shortness of breath. HPI Narrative CLARICE PHILLIP, is a 60 M with no significant past medical history apart from GERD presented to the emergency room because of chest pain or shortness of breath. Patient stated that his symptoms have been going on for at least couple of months with chest pain, retrosternal chest pain, squeezing type pain, intermittent, mainly exertional, associated with exertional shortness of breath and nausea and relieved with rest. He stated that since yesterday, his pain was more constant and radiates between shoulder blades. Currently, he has no chest pain. He mentioned that his father had his first heart attack at age of 47 and he because of heart disease at age of 66. In the emergency department, his vital signs were stable. Routine blood work was unremarkable. Chest x-ray showed mild cardiomegaly and mild pulmonary vascular congestion. EKG revealed normal sinus rhythm, T wave inversion and ST segment depression in leads V4, V5 and V6, no acute ST elevation. CTA chest showed no PE or dissection, mild degree of vascular congestion. Troponin was elevated at 2.51. Patient was started on IV heparin drip in the ED. He is being admitted for acute non-ST ovation MT and mild acute probably systolic CHF. [facility] Medical History (Updated 09/22/20 @ 11:[address] Vidhya Vazquez MD) Hypertension Home Medications NK 09/22/20 [History Last Taken Unknown] Allergy/AdvReac Type Severity Reaction Status Date / Time Penicillins Allergy Other Verified 09/22/20 08:39 Family History (Updated 09/22/20 @ 11:[address] Vidhya Vazquez MD) Other CAD (coronary artery disease) Cancer other (Family history of premature CAD. Father had first heart attack at age 47.) Surgical History (Updated 09/22/20 @ 11:[address] Vidhya Vazquez MD) History of carpal tunnel surgery Social History (Updated 09/22/20 @ 11:[address] Vidhya Vazquez MD) Smoking Status: Never smoker details: Drinks occasionally. ROS Constitutional Constitutional: Denies anorexia, chills, fatigue, fever(s) or malaise Eyes Eyes: Denies blurry vision, change in eye color, change in vision, double vision or eye pain ENT HEENT: Denies ear pain, epistaxis, headache(s), nasal congestion, post nasal drip or sore throat Cardiovascular Cardiovascular: Reports chest pain and dyspnea on exertion; Denies edema, lightheadedness, orthopnea, palpitations or syncope Respiratory/Chest Respiratory/Chest: Reports dyspnea and shortness of breath with exertion; Denies cough, hemoptysis, productive cough or wheezing Gastrointestinal Gastrointestinal: Reports nausea; Denies abdominal pain, constipation, diarrhea, hematemesis, hematochezia, melena or vomiting Genitourinary Genitourinary: Denies burning urination, dysuria, hematuria, urinary hesitancy or urinary urgency Musculoskeletal Musculoskeletal: Denies arthralgias, back pain, joint pain, joint swelling, myalgias or neck pain Neurologic Neurologic: Denies confusion, dizziness, focal weakness, headache(s), numbness, paresthesias, seizures, tingling or tremor(s) Psychiatric Psychiatric: Denies anxiety, depression, hallucinations, homicidal ideation or suicidal ideation Endocrine Endocrinology: Denies change in body appearance, cold intolerance, heat intolerance, polydipsia or polyuria Hematologic/Lymphatic Hematologic/Lymphatic: Denies easy bleeding, easy bruising or lymphadenopathy Allergic/Immunologic Allergic/Immunologic: Denies itchy eyes, rhinitis, throat swelling, tongue swelling, hives, urticaria or wheezing Vital Signs Vital Signs Vital Signs: 09/22/20 08:39 09/22/20 08:53 09/22/20 09:55 Temperature 97.8 F Temperature Source Temporal Pulse Rate 94 87 Respiratory Rate 18 20 H Respiratory Effort Normal Non-Labored Blood Pressure 147/92 H 148/95 H Blood Pressure Mean 110 112 Pulse Ox 96 96 97 Oxygen Delivery Method Room Air Room Air Room Air 09/22/20 10:30 09/22/20 11:09 Temperature 97.9 F Temperature Source Oral Pulse Rate 87 79 Respiratory Rate 16 Respiratory Effort Blood Pressure 148/100 H Blood Pressure Mean 116 Pulse Ox 97 Oxygen Delivery Method Room Air Weight Weight: 190 lb Body Mass Index (BMI) 25.7 Physical Exam Const alert, oriented x3, no apparent distress and no limitations General Appearance: cooperative HEENT normocephalic, head/scalp atraumatic and moist oral mucous membranes Eyes PERRL, EOMs intact bilaterally, conjunctivae normal and no scleral icterus Neck no lymphadenopathy, supple, no meningeal signs, no JVD and no carotid bruits Resp normal respiratory effort, normal air movement and clear to auscultation bilaterally Auscultation: Negative for crackles, rales, rhonchi or wheezes Cardio regular rate, regular rhythm, S1 normal heart sound, S2 normal heart sound, no murmurs and no JVD Peripheral Pulses: pulses 2+ throughout GI normal to inspection, nondistended, normoactive bowel sounds, soft to palpation, non-tender and non-distended; Negative for hepatosplenomegaly Extremity normal to inspection, full ROM and no clubbing, cyanosis or edema Skin no rashes or lesions noted, no wounds and no petechiae Neuro oriented x3, CN's II-XII intact bilaterally and moves all extremities Sensorium / Orientation: alert Speech: speech normal Motor Exam: strength 5/5 throughout Psych mental status grossly normal, affect normal and denies hallucinations Results Lab / Micro Data Result Diagrams: 09/22/20 08:48 09/22/20 08:48 Labs: Laboratory Results - last 24 hr 09/22/20 09/22/20 09/22/20 08:48 08:48 08:48 WBC 7.1 RBC 5.11 Hgb 15.5 Hct 46.3 MCV 90.6 MCH 30.3 MCHC 33.5 RDW Std Deviation 42.5 RDW Coeff of Marquita 12.9 Plt Count 189 MPV 10.4 Immature Gran % (Auto) 0.300 Neut % (Auto) 56.7 Lymph % (Auto) 29.2 [place] % (Auto) 10.2 H Eos % (Auto) 3.0 Baso % (Auto) 0.6 Absolute Neuts (auto) 4.0 Absolute Lymphs (auto) 2.07 Nucleated RBC % 0 PT INR APTT Sodium 140 Potassium 4.3 Chloride 108 H Carbon Dioxide 27.0 Anion Gap 5 BUN 27 H Creatinine 1.20 Estim Creat Clear Calc 70.06 Est GFR (MDRD) Af Amer 79 Est GFR (MDRD) Non-Af 65 BUN/Creatinine Ratio 22.5 H Glucose 110 H Hemoglobin A1c Calcium 9.2 Total Bilirubin 0.60 Direct Bilirubin 0.15 AST 38 H ALT 32 Alkaline Phosphatase 105 Troponin I 2.510 H* Total Protein 7.4 Albumin 3.9 Globulin 3.5 Triglycerides 84 Cholesterol 206 H LDL Cholesterol 143 H VLDL Cholesterol 17 HDL Cholesterol 46 TSH 2.60 09/22/20 09/22/20 08:48 09:41 WBC RBC Hgb Hct MCV MCH MCHC RDW Std Deviation RDW Coeff of Marquita Plt Count MPV Immature Gran % (Auto) Neut % (Auto) Lymph % (Auto) [place] % (Auto) Eos % (Auto) Baso % (Auto) Absolute Neuts (auto) Absolute Lymphs (auto) Nucleated RBC % PT 13.3 INR 1.1 APTT 28.6 Sodium Potassium Chloride Carbon Dioxide Anion Gap BUN Creatinine Estim Creat Clear Calc Est GFR (MDRD) Af Amer Est GFR (MDRD) Non-Af BUN/Creatinine Ratio Glucose Hemoglobin A1c 5.4 Calcium Total Bilirubin Direct Bilirubin AST ALT Alkaline Phosphatase Troponin I Total Protein Albumin Globulin Triglycerides Cholesterol LDL Cholesterol VLDL Cholesterol HDL Cholesterol TSH Radiology Impression Chest CTA 09/22/20 08:47 IMPRESSION: There is no evidence of a pulmonary embolism. 6 mm noncalcified nodule in the right lower lobe. A 12 month follow-up examination is suggested. Mild increased septal markings in both lungs as described. Mild degree of the vascular congestion should be ruled out. Electronically Signed: Nelson Monzon MD at 10:21 EDT , Service support , Chest X-Ray 09/22/20 08:48 IMPRESSION: Borderline cardiomegaly. Findings suggestive of vascular congestion. Electronically Signed: Nelson Monzon MD at 10:02 EDT , Service support , Assessment & Plan Assessment/Plan (1) Non-STEMI (non-ST elevated myocardial infarction): (2) History of pancreatitis: (3) GERD (gastroesophageal reflux disease): PLAN: This is a 60 years old male patient presented to the emergency room because of 2 months history of intermittent exertional chest pain or shortness of breath, found to have elevated troponin and EKG changes consistent with acute non-ST elevation MT as well as mild acute probably systolic CHF. #1 acute non-ST ovation MT: Patient with family history of premature CAD, father had his first heart attack at age of 47. EKG reviewed, revealed normal sinus rhythm, ST segment depression and T wave inversion in leads V4, V5 and V6. Troponin is elevated. Started on IV heparin drip. Plan: Admit to PCU, cardiac monitoring, serial cardiac enzymes, repeat EKG tomorrow morning, continue IV heparin drip, start baby aspirin, Lipitor, Coreg, lisinopril, 2D echocardiogram, cardiology consult, repeat CBC and BMP tomorrow morning, check lipid profile, LFT, TSH, hemoglobin A1c. #2 mild acute probably systolic CHF: This is based on symptoms and chest x-ray findings. Currently, patient is on room air. Plan: Cardiac monitoring, IV Lasix 20 mg x 1, 2D echocardiogram, start Coreg and lisinopril. #3 GERD: Start Protonix twice daily. #4 DVT prophylaxis: Continue IV heparin drip. This note was generated with [employer] dictation software. It may contain incorrect words, spelling, and punctuation that were not noted in checking the note before signing. Charges/Coding Visit Charges Inpatient E&M: 10564 Init Hosp L3
--- NOTE | 2020-09-22 12:59 | CASEMGMT ---
Insurance review for hospitals In-network with [facility] Insurance if transfer is recommended is as follows: [facility], Jennifer, CC, [facility], [facility], OS, [facility] ([facility]), and . Minor BSN RN CM
[2020-09-22 13:31] LABS: Lipase 1687 U/L (73-393)
[2020-09-22] MEDS: 0.9% Saline Lock 10 ML Syringe IV (14:00)
[2020-09-22] MEDS: Furosemide 20 MG/2 ML VIAL IV (14:00)
--- NOTE | 2020-09-22 14:16 | CON.PCM.CA_ITS ---
Assessment & Plan Assessment/Plan (1) Non-STEMI (non-ST elevated myocardial infarction): PLAN: 60-year-old patient, presented to ED at [facility] complaining of symptoms of chest pain This has been a chronic symptoms retrosternal chest pain typical of angina, aggravated with exertion and walking and relieved with rest. He has no prior cardiac history in particular no history of PCI stent or coronary artery bypass graft. Patient has significant family history of CAD further history of myocardial inf arction with [place]. Cardiac examination is normal EKG showed normal sinus with ST-T change in the lateral leads. High sensitive troponins elevated, up to 3 Plan and recommendations; 1. Patient currently on medical therapy with aspirin, heparin, carvedilol, atorvastatin and nitro as needed. 2. I discussed the plan of evaluating further with cardiac catheterization which will be set up for tomorrow. 3. Risk and benefit of the procedure explained in detail to the patient he agreed to proceed and informed consent obtained. (2) GERD (gastroesophageal reflux disease): (3) History of pancreatitis: HPI Consult Data Date of Consult: 09/22/20 HPI Narrative Reason for Consultation: Patient with CAD/non-ST elevation [place]. HPI Narrative: CLARICE PHILLIP, is a 60 M who presents [facility] Medical History (Updated 09/22/20 @ 14:[address] Krissy Maldonado MD) Hypertension Home Medications NK 09/22/20 [History Last Taken Unknown] Allergy/AdvReac Type Severity Reaction Status Date / Time Penicillins Allergy Other Verified 09/22/20 11:55 Family History (Updated 09/22/20 @ 11:[address] Vidhya Vazquez MD) Other CAD (coronary artery disease) Cancer Surgical History (Updated 09/22/20 @ 11:[address] Vidhya Vazquez MD) History of carpal tunnel surgery Social History (Updated 09/22/20 @ 11:[address] Vidhya Vazquez MD) Smoking Status: Never smoker details: Drinks occasionally. Physical Exam Narrative Cardiac rhythm is sinus rhythm Cardiac examination S1-S2 regular there is no murmur no systolic or diastolic murmur Chest examination is a mild bilateral basilar rales Examination abdomen soft. Examination lower extremity no clubbing no cyanosis no lower extremity edema, pedal pulses palpable +2 Central nervous system exam no focal neurological deficit. Const alert, oriented x3 and healthy appearing Orientation / Consciousness: awake Neck supple Chest inspection of chest normal and palpation of chest normal Resp Resp Narrative: Mild bilateral basilar rales. Cardio regular rate, regular rhythm, S1 normal heart sound, S2 normal heart sound, no murmurs, no rub, no gallops, no clicks, no JVD and peripheral pulses 2+ throughout Objective Data Vital Signs: Vital Signs Temp Pulse Resp BP Pulse Ox 98.0 F 84 16 133/88 H 97 09/22/20 12:00 09/22/20 12:00 09/22/20 12:00 09/22/20 12:00 09/22/20 12:00 Oxygen Delivery Method Room Air Weight: 197 lb 1.492 oz Body Mass Index (BMI) 26.7 Intake & Output: Intake and Output for Last 24 Hours 09/20/20 09/21/20 09/22/20 23:59 23:59 23:59 Intake Total 136.6 / 136.6 Balance 136.6 / 136.6 Lab / Micro Data Result Diagrams: 09/22/20 08:48 09/22/20 08:48 Labs: Laboratory Results - last 24 hr 09/22/20 09/22/20 09/22/20 08:48 08:48 08:48 WBC 7.1 RBC 5.11 Hgb 15.5 Hct 46.3 MCV 90.6 MCH 30.3 MCHC 33.5 RDW Std Deviation 42.5 RDW Coeff of Marquita 12.9 Plt Count 189 MPV 10.4 Immature Gran % (Auto) 0.300 Neut % (Auto) 56.7 Lymph % (Auto) 29.2 [place] % (Auto) 10.2 H Eos % (Auto) 3.0 Baso % (Auto) 0.6 Absolute Neuts (auto) 4.0 Absolute Lymphs (auto) 2.07 Nucleated RBC % 0 PT INR APTT Sodium 140 Potassium 4.3 Chloride 108 H Carbon Dioxide 27.0 Anion Gap 5 BUN 27 H Creatinine 1.20 Estim Creat Clear Calc 70.06 Est GFR (MDRD) Af Amer 79 Est GFR (MDRD) Non-Af 65 BUN/Creatinine Ratio 22.5 H Glucose 110 H Hemoglobin A1c Calcium 9.2 Total Bilirubin 0.60 Direct Bilirubin 0.15 AST 38 H ALT 32 Alkaline Phosphatase 105 Troponin I 2.510 H* Total Protein 7.4 Albumin 3.9 Globulin 3.5 Triglycerides 84 Cholesterol 206 H LDL Cholesterol 143 H VLDL Cholesterol 17 HDL Cholesterol 46 Lipase TSH 2.60 09/22/20 09/22/20 09/22/20 08:48 09:41 12:50 WBC RBC Hgb Hct MCV MCH MCHC RDW Std Deviation RDW Coeff of Marquita Plt Count MPV Immature Gran % (Auto) Neut % (Auto) Lymph % (Auto) [place] % (Auto) Eos % (Auto) Baso % (Auto) Absolute Neuts (auto) Absolute Lymphs (auto) Nucleated RBC % PT 13.3 INR 1.1 APTT 28.6 Sodium Potassium Chloride Carbon Dioxide Anion Gap BUN Creatinine Estim Creat Clear Calc Est GFR (MDRD) Af Amer Est GFR (MDRD) Non-Af BUN/Creatinine Ratio Glucose Hemoglobin A1c 5.4 Calcium Total Bilirubin Direct Bilirubin AST ALT Alkaline Phosphatase Troponin I 3.190 H* Total Protein Albumin Globulin Triglycerides Cholesterol LDL Cholesterol VLDL Cholesterol HDL Cholesterol Lipase 1687 H TSH Cardiology Labs/Tests 09/22/20 08:48: WBC 7.1, RBC 5.11, Hgb 15.5, Hct 46.3, MCV 90.6, MCH 30.3, MCHC 33.5, Plt Count 189, MPV 10.4, Immature Gran % (Auto) 0.300, Neut % (Auto) 56.7, Lymph % (Auto) 29.2, [place] % (Auto) 10.2 H, Eos % (Auto) 3.0, Baso % (Auto) 0.6, Absolute Neuts (auto) 4.0, Nucleated RBC % 0 09/22/20 08:48: Sodium 140, Potassium 4.3, Chloride 108 H, Carbon Dioxide 27.0, Anion Gap 5, BUN 27 H, Creatinine 1.20, Est GFR (MDRD) Af Amer 79, Est GFR (MDRD) Non-Af 65, BUN/Creatinine Ratio 22.5 H, Glucose 110 H, Calcium 9.2, Troponin I 2.510 H* 09/22/20 08:48: Total Bilirubin 0.60, Direct Bilirubin 0.15, Triglycerides 84, Cholesterol 206 H, LDL Cholesterol 143 H, VLDL Cholesterol 17, HDL Cholesterol 46 09/22/20 08:48: Hemoglobin A1c 5.4 09/22/20 09:41: PT 13.3, INR 1.1, APTT 28.6 09/22/20 12:50: Troponin I 3.190 H* Rhythm: Underlying cardiac rhythm is normal sinus. EKG: Significantly abnormal EKG with ST-T changes noted in the lateral leads consistent with myocardial ischemia. : Radiography Diagnostic Testing: Radiology Impression Chest CTA 09/22/20 08:47 IMPRESSION: There is no evidence of a pulmonary embolism. 6 mm noncalcified nodule in the right lower lobe. A 12 month follow-up examination is suggested. Mild increased septal markings in both lungs as described. Mild degree of the vascular congestion should be ruled out. Electronically Signed: Nelson Monzon MD at 10:21 EDT , Service support , Chest X-Ray 09/22/20 08:48 IMPRESSION: Borderline cardiomegaly. Findings suggestive of vascular congestion. Electronically Signed: Nelson Monzon MD at 10:02 EDT , Service support ,
--- NOTE | 2020-09-22 15:22 | CASEMGMT ---
RN CM YOUTH COUNSELOR CM to room to meet with patient for initial transition planning/care coordination assessment. KULDIP ADAIR introduced self and role at [facility]. Pt voices understanding and consents to assessment at this time. Pt resting in bed in no distress at this time. Pt is A/O at this time and answers all questions appropriately. Care providers, pharmacy, and demographics verified/updated at this time. PCP: Dr Juvenal Can--pt states he has not been in to see him for a couple of years Specialists:None Preferred Pharmacy: [facility] Retail Insurance: Rem[employer] Prescription Benefit: Yes Living Will/HPOA: Pt does not currently have LW/HCPOA and declines info at this time. Pt made aware that he can contact SW as an out-pt and make appt in the future if he decides he would like to talk with someone about this or would like to utilize [facility] social work for advanced directive completion. Given [employer] Insurance Agent Rac card with information and contact number. Pt expresses understanding. LNOK: Has a son, Connor Gallardo, who lives in [place]. Son is not listed on demographics. Pt states does not need to be listed. States wishes GF, Chana Reardon, to be listed and he provided her contact #. This was updated on demographics at this time. Friend, Manoj, is also listed on contacts. Living Arrangements: Lives w/GFChana, in 2-story home. Denies difficulty w/stairs. Independent w/ADL's. Pt/GF share home tasks. Transportation: Pt states drives self and states no transportation concerns at this time. Chana also drives. DME: Denies using any DME and denies needs. HHC/SNF: No history of either. No needs identified. Pt wishes to return home and states has no concerns with going home at time of discharge. CM to follow for any discharge planning/needs. Pt voices no concerns/needs at this time. Advised pt to ask for CM if any concerns/needs arise. Voices understanding. PLAN: Home Minor OSULLIVAN RN, CM
[2020-09-22 17:15] LABS: Partial Thromboplast Time 70.6 Seconds (24.1-36.2)
--- NOTE | 2020-09-22 18:46 | NURSING ---
Patient states that he wants his girlfriend, Chana Reardon to be the one contacted for medical concerns, not his son.
[2020-09-22] MEDS: Atorvastatin Calcium 20 MG Tablet PO (20:47)
[2020-09-22] MEDS: Pantoprazole Sodium 40 MG Tablet PO (20:47)
[2020-09-22] MEDS: Carvedilol 3.125 MG TABLET PO (20:47)
[2020-09-22 23:21] LABS: Partial Thromboplast Time 57.3 Seconds (24.1-36.2)
[2020-09-23] VITALS (28 sets, daily range): BP systolic 109–144; BP diastolic 69–98; PULSE 63–84; RESP 10–20; TEMP 35.7–36.6; O2SAT 94–100
[2020-09-23 05:08] LABS: Absolute Lymphocyte Count 2.09 X10^3/uL (0.83-4.51); Absolute Neutrophil Count 4.1 X10^3/uL (2.0-7.7); Basophil# 0.05 X10^3/uL; Basophil% 0.7 % (0-1); Eosinophil# 0.23 X10^3/uL; Eosinophils% 3.3 % (0-5); Hematocrit 48.1 % (40-54); Hemoglobin 15.8 g/dL (13.0-16.5); Lymphocyte # 2.09 X10^3/ul (0.83-4.51); Lymphocyte % 29.6 % (19-41); Mean Corp Hgb Conc 32.8 g/dL (32-36); Mean Corpuscular Hgb 29.9 pg (27.0-32.0); Mean Corpuscular Volume 91.1 fL (80-94); Mean Platelet Vol. 11.2 fl (6.2-12.0); Monocyte# 0.62 X10^3/uL; Monocyte% 8.8 % (0-10); NRBC Flagged by Analyzer 0 % (0-5); Neutrophil # 4.06 X10^3/uL (2.7-7.7); Neutrophil % 57.3 % (47-70); Platelet Count 165 K/mm3 (150-450); RBC Distribution Width CV 12.8 % (11.6-14.6); RBC Distribution Width SD 42.2 fl (35.1-43.9); Red Blood Count 5.28 M/mm3 (4.6-6.2); White Blood Count 7.1 K/mm3 (4.4-11.0)
[2020-09-23 05:17] LABS: Partial Thromboplast Time 57.8 Seconds (24.1-36.2)
[2020-09-23 05:21] LABS: Anion Gap 6 (5-15); BUN 28 mg/dL (7-18); BUN/Creat Ratio 23.7 RATIO (10-20); Calcium,Total 8.6 mg/dL (8.5-10.1); Chloride 108 mmol/L (98-107); Creatinine, Serum 1.18 mg/dL (0.70-1.30); EST Glomerular Filtration Rate 66 mL/min (>60); Est Glom Filt Rate - Afr Amer 80 mL/min (>60); Estimated Creatinine Clearance 71.24 ml/min; Glucose 108 mg/dL (74-106); Potassium 4.1 mmol/L (3.5-5.1); Sodium Level 137 mmol/L (136-145)
--- NOTE | 2020-09-23 05:55 | EKG12_ITS ---
Test Reason : CP Blood Pressure : / mmHG Vent. Rate : 092 BPM Atrial Rate : 092 BPM P-R Int : 180 ms QRS Dur : 114 ms QT Int : 398 ms P-R-T Axes : 053 053 096 degrees QTc Int : 492 ms Normal sinus rhythm Possible Left atrial enlargement Incomplete left bundle branch block ST & T wave abnormality, consider lateral ischemia Prolonged QT Abnormal ECG Confirmed by BELLA FLOOD, LISA ([id number]), commercial production editor TOGN YOUNGER ([id number]) on 09/25/2020 8:17:59 AM Referred By: MATT Confirmed By:LISA BLANCO MD
[2020-09-23] MEDS: Carvedilol 3.125 MG TABLET PO ×2 (06:43→21:40)
[2020-09-23] MEDS: Lisinopril 5 MG Tablet PO (06:43)
[2020-09-23] MEDS: Aspirin 81 MG TAB.CHEW PO (06:43)
[2020-09-23] MEDS: Pantoprazole Sodium 40 MG Tablet PO (06:43)
[2020-09-23] MEDS: HEPARIN/D5w 25,000 UNITS 25,000 UNITS/250 ML IV.SOLN. 12 UNITS IV ×2 (07:52→15:07)
[2020-09-23] MEDS: 0.9% Normal Saline 1,000 ML 75 ML IV (07:57)
--- NOTE | 2020-09-23 08:36 | CT_ITS ---
STUDY: CT ABDOMEN AND PELVIS WITHOUT CONTRAST REASON FOR EXAM: Male, 60 years old. Elevated lipase, acute pancreatitis RADIATION DOSAGE (If Supplied By Facility): CTDIvol = ( 7.90 ) mGy, DLP = ( 386.74 ) mGycm TECHNIQUE: Transaxial images were obtained from the dome of the diaphragm to the symphysis pubis without oral contrast, and without intravenous contrast. Sagittal and coronal images were reconstructed. Individualized dose optimization techniques were used for this CT. COMPARISON: Comparison is made with prior study dated 12/07/2017. FINDINGS: Mild degree of increased markings at the lung bases with minimal bilateral pleural effusions suggestive of a bibasilar atelectasis. The visualized portions of the heart are within normal limits. There is a stable 1 cm cyst in the upper medial aspect of the right lobe of liver adjacent to the dome. I suspect sludge and small gallstones in the gallbladder lumen. I suspect minimal gallbladder wall thickening. Normal spleen. Punctate calcification in the head of the pancreas. Normal bilateral adrenal glands. Normal right kidney. Normal left kidney. Normal visualized stomach. Normal small intestine. There are multiple colonic diverticula consistent with diverticulosis. The appendix is visualized and appears normal. There is atherosclerotic calcification of the abdominal aorta and its major visceral branches, without a demonstrated aneurysm. Normal inferior vena cava. Normal retroperitoneum. Normal urinary bladder. There is a small umbilical hernia containing fat. Small bilateral inguinal hernias containing fat. There are mild degenerative changes of the visualized lumbar spine. CT/Abdomen/Pelvis without Cont IMPRESSION: Mild degree of bibasilar atelectasis with minimal pleural effusions. Stable 1 cm cyst in the superior medial aspect of the right lobe of the liver. Punctate calcification in the head of the pancreas. Findings suggestive of small gallstones and sludge in the gallbladder lumen. Electronically Signed: Nelson Monzon MD at 10:01 EDT , Service support ,
--- NOTE | 2020-09-23 08:38 | PCM.PN.HOSP ---
Subjective Subjective Chief complaint: Follow-up after admission for acute non-ST ovation [place], mild acute CHF and found to have elevated lipase. Patient seen and examined. No acute events overnight. He still complaining of admitted shortness of breath and chest discomfort. He reported mild epigastric discomfort, no nausea or vomiting. His vital signs are stable. Objective Data Objective Data Vital Signs: Vital Signs Temp Pulse Resp BP Pulse Ox 97.8 F 84 18 134/93 H 95 09/23/20 07:56 09/23/20 07:56 09/23/20 07:56 09/23/20 07:56 09/23/20 07:56 Oxygen Delivery Method Room Air Weight: 197 lb 1.492 oz Body Mass Index (BMI) 26.7 Intake & Output: Intake and Output for Last 24 Hours 09/21/20 09/22/20 09/23/20 23:59 23:59 23:59 Intake Total 616.6 / 616.6 233.4 / 233.4 Balance 616.6 / 616.6 233.4 / 233.4 Lab / Micro Data Result Diagrams: 09/23/20 04:58 09/23/20 04:58 Labs: Laboratory Results - last 24 hr 09/22/20 09/22/20 09/22/20 08:48 08:48 08:48 WBC 7.1 RBC 5.11 Hgb 15.5 Hct 46.3 MCV 90.6 MCH 30.3 MCHC 33.5 RDW Std Deviation 42.5 RDW Coeff of Marquita 12.9 Plt Count 189 MPV 10.4 Immature Gran % (Auto) 0.300 Neut % (Auto) 56.7 Lymph % (Auto) 29.2 Nicholas % (Auto) 10.2 H Eos % (Auto) 3.0 Baso % (Auto) 0.6 Absolute Neuts (auto) 4.0 Absolute Lymphs (auto) 2.07 Nucleated RBC % 0 PT INR APTT Sodium 140 Potassium 4.3 Chloride 108 H Carbon Dioxide 27.0 Anion Gap 5 BUN 27 H Creatinine 1.20 Estim Creat Clear Calc 70.06 Est GFR (MDRD) Af Amer 79 Est GFR (MDRD) Non-Af 65 BUN/Creatinine Ratio 22.5 H Glucose 110 H Hemoglobin A1c Calcium 9.2 Total Bilirubin 0.60 Direct Bilirubin 0.15 AST 38 H ALT 32 Alkaline Phosphatase 105 Troponin I 2.510 H* Total Protein 7.4 Albumin 3.9 Globulin 3.5 Triglycerides 84 Cholesterol 206 H LDL Cholesterol 143 H VLDL Cholesterol 17 HDL Cholesterol 46 Lipase TSH 2.60 09/22/20 09/22/20 09/22/20 08:48 09:41 12:50 WBC RBC Hgb Hct MCV MCH MCHC RDW Std Deviation RDW Coeff of Marquita Plt Count MPV Immature Gran % (Auto) Neut % (Auto) Lymph % (Auto) Nicholas % (Auto) Eos % (Auto) Baso % (Auto) Absolute Neuts (auto) Absolute Lymphs (auto) Nucleated RBC % PT 13.3 INR 1.1 APTT 28.6 Sodium Potassium Chloride Carbon Dioxide Anion Gap BUN Creatinine Estim Creat Clear Calc Est GFR (MDRD) Af Amer Est GFR (MDRD) Non-Af BUN/Creatinine Ratio Glucose Hemoglobin A1c 5.4 Calcium Total Bilirubin Direct Bilirubin AST ALT Alkaline Phosphatase Troponin I 3.190 H* Total Protein Albumin Globulin Triglycerides Cholesterol LDL Cholesterol VLDL Cholesterol HDL Cholesterol Lipase 1687 H TSH 09/22/20 09/22/20 09/22/20 14:52 16:46 22:58 WBC RBC Hgb Hct MCV MCH MCHC RDW Std Deviation RDW Coeff of Marquita Plt Count MPV Immature Gran % (Auto) Neut % (Auto) Lymph % (Auto) Nicholas % (Auto) Eos % (Auto) Baso % (Auto) Absolute Neuts (auto) Absolute Lymphs (auto) Nucleated RBC % PT INR APTT 70.6 H 57.3 H Sodium Potassium Chloride Carbon Dioxide Anion Gap BUN Creatinine Estim Creat Clear Calc Est GFR (MDRD) Af Amer Est GFR (MDRD) Non-Af BUN/Creatinine Ratio Glucose Hemoglobin A1c Calcium Total Bilirubin Direct Bilirubin AST ALT Alkaline Phosphatase Troponin I 3.220 H* Total Protein Albumin Globulin Triglycerides Cholesterol LDL Cholesterol VLDL Cholesterol HDL Cholesterol Lipase TSH 09/23/20 09/23/20 09/23/20 04:58 04:58 04:58 WBC 7.1 RBC 5.28 Hgb 15.8 Hct 48.1 MCV 91.1 MCH 29.9 MCHC 32.8 RDW Std Deviation 42.2 RDW Coeff of Marquita 12.8 Plt Count 165 MPV 11.2 Immature Gran % (Auto) 0.300 Neut % (Auto) 57.3 Lymph % (Auto) 29.6 Nicholas % (Auto) 8.8 Eos % (Auto) 3.3 Baso % (Auto) 0.7 Absolute Neuts (auto) 4.1 Absolute Lymphs (auto) 2.09 Nucleated RBC % 0 PT INR APTT 57.8 H Sodium 137 Potassium 4.1 Chloride 108 H Carbon Dioxide 23.0 Anion Gap 6 BUN 28 H Creatinine 1.18 Estim Creat Clear Calc 71.24 Est GFR (MDRD) Af Amer 80 Est GFR (MDRD) Non-Af 66 BUN/Creatinine Ratio 23.7 H Glucose 108 H Hemoglobin A1c Calcium 8.6 Total Bilirubin Direct Bilirubin AST ALT Alkaline Phosphatase Troponin I Total Protein Albumin Globulin Triglycerides Cholesterol LDL Cholesterol VLDL Cholesterol HDL Cholesterol Lipase TSH Radiography Diagnostic Testing: Radiology Impression Chest CTA 09/22/20 08:47 IMPRESSION: There is no evidence of a pulmonary embolism. 6 mm noncalcified nodule in the right lower lobe. A 12 month follow-up examination is suggested. Mild increased septal markings in both lungs as described. Mild degree of the vascular congestion should be ruled out. Electronically Signed: Nelson Monzon MD at 10:21 EDT , Service support , Chest X-Ray 09/22/20 08:48 IMPRESSION: Borderline cardiomegaly. Findings suggestive of vascular congestion. Electronically Signed: Nelson Monzon MD at 10:02 EDT , Service support , Physical Exam Const alert, oriented x3, no apparent distress and no limitations General Appearance: cooperative HEENT normocephalic, head/scalp atraumatic and moist oral mucous membranes Eyes PERRL, EOMs intact bilaterally, conjunctivae normal and no scleral icterus Neck no lymphadenopathy, supple, no meningeal signs, no JVD and no carotid bruits Resp normal respiratory effort, normal air movement and clear to auscultation bilaterally Auscultation: Negative for crackles, rales, rhonchi or wheezes Cardio regular rate, regular rhythm, S1 normal heart sound, S2 normal heart sound, no murmurs and no JVD Peripheral Pulses: pulses 2+ throughout GI normal to inspection, nondistended, normoactive bowel sounds, soft to palpation, non-tender and non-distended; Negative for hepatosplenomegaly Extremity normal to inspection, full ROM and no clubbing, cyanosis or edema Skin no rashes or lesions noted, no wounds and no petechiae Neuro oriented x3, CN's II-XII intact bilaterally and moves all extremities Sensorium / Orientation: alert Speech: speech normal Motor Exam: strength 5/5 throughout Psych mental status grossly normal, affect normal and denies hallucinations Assessment & Plan Assessment/Plan (1) Non-STEMI (non-ST elevated myocardial infarction): (2) History of pancreatitis: (3) GERD (gastroesophageal reflux disease): PLAN: This is a 60 years old male patient presented to the emergency room because of 2 months history of intermittent exertional chest pain or shortness of breath, found to have elevated troponin and EKG changes consistent with acute non-ST elevation [place] as well as mild acute probably systolic CHF, found to have elevated lipase in the setting of history of pancreatitis. #1 acute non-ST ovation [place]: He is on IV heparin drip, on aspirin, Coreg, statins and lisinopril. He still having intermittent symptoms of chest pain or shortness of breath. Patient with family history of premature CAD, father had his first heart attack at age of 47. His vital signs are stable. TSH and hemoglobin A1c were normal. Lipid profile revealed cholesterol of 206, LDL cholesterol of 143 and HDL cholesterol of 46. 2D echocardiogram ordered. Cardiology on the case, plan for cardiac catheterization today. #2 elevated lipase/acute pancreatitis: Patient did have a history of pancreatitis in the past. He denies drinking alcohol except occasionally. LFT was unremarkable. Lipase is 1687. Plan: Clear liquids after heart cath, very gentle IV fluids for hydration, change Protonix to IV, CT scan abdomen and pelvis without contrast. #3 mild acute probably systolic CHF: He received 1 dose of IV Lasix yesterday. He remained on room air. 2D echocardiogram ordered. He is on Coreg and lisinopril. Plan for heart cath today. #4 GERD: Switch Protonix to IV twice daily. #5 DVT prophylaxis: Continue IV heparin drip. This note was generated with [employer] dictation software. It may contain incorrect words, spelling, and punctuation that were not noted in checking the note before signing. Charges/Coding Visit Charges Inpatient E&M: 55966 Subs Hosp L2
[2020-09-23] MEDS: Acetaminophen 325 MG Tablet 650 MG PO (12:12)
--- NOTE | 2020-09-23 12:31 | PRO.PCM_ITS ---
Procedure Report Date of Procedure: 09/23/20 Procedure Report Date of Procedure: 09/23/20 Procedure performed; 1. Left heart catheterization 2. Selective coronary angiography 3. Measurement of LVEDP 4. Left ventriculogram 5. Moderate sedation 6. Placement of TR band to maintain hemostasis for the right radial arteriotomy site. Preprocedure diagnosis; 60-year-old patient, presented to ED, [facility] yesterday with symptoms of chest pain which progressively worsening. Associated with symptoms of shortness of breath. This has been a chronic symptom for the last 2 months and patient is a farm truck driver and he noted his symptoms is progressively more severe with retrosternal chest pain typical of angina aggravated with exertion and walking and relieved with rest. Patient had history of hypertension he has no prior cardiac history. Cardiac evaluation he had cardiac exam with abnormal electrocardiogram showing ST-T change in the anterolateral leads. The cardiac biomarkers with troponins were negative. Patient treated with medical therapy with aspirin heparin, beta-fidelia and statin atorvastatin, patient has abnormal echocardiogram which showed severe LV systolic dysfunction ejection fraction in the range of 15-20%, moderately enlarged left atrium and moderate to severe MR. Based on the clinical presentation patient underwent cardiac catheterization today. Consent; Risk and benefit of the procedure explained in detail to the patient elected to proceed and informed consent obtained. Moderate sedation; Type of anesthesia; moderate anesthesia Patient was given 1 mg of Versed and 50 mcg of fentanyl. Diagnostic catheter used; 1. Approach right radial artery approach with placement of 6 Romanian Terumo sheath 2. Patient was given a cocktail of 3000 units of heparin, 2.5 verapamil, 200 mcg of nitroglycerin 3. We used 5 Romanian JL 3.5, 5 Romanian JR4, 5 Romanian pigtail catheter. Procedure in detail; Under fluoroscopic guidance we will proceed with the 5 Romanian JL 3.5 advanced ascending aorta, cannulate the left main coronary artery without difficulty, multiple views of the left coronary system obtained including [place]LANDER, ORDONEZ cranial and caudal views. Following this catheter exchanged for 5 Romanian JR4 catheter and selective angiographic view of the right carotid system were obtained including [place]ER ORDONEZ cranial and caudal views The same catheter used across aortic valve and then placed the 5 Romanian pigtail catheter and interventricular obtained 30 degree ORDONEZ projection using a total of 30 cc of contrast And measurement of LVEDP Following this pullback pressure recorded Hemodynamic; Severe LV systolic dysfunction ejection fraction in the range of 20-25% with global LV hypokinesia, +2?+3 mitral regurgitation noted No systolic gradient across aortic valve Coronary angiography findings; 1. Left main calcified, bifurcating into LAD and the left circumflex The left main is short, angiographically no significant atherosclerosis of the left main noted. 2. Proximal LAD calcified 50% stenosis, followed by diffuse mid LAD 90% stenosis. Distal LAD had no significant atherosclerosis with good distal targets for bypass Collaterals from the apical portion of the LAD to the right coronary artery/RPDA 3. Ostial diagonal 90% stenosis/moderate size vessel. 4. Proximal left circumflex had diffuse 80% stenosis 5. Bifurcation of OM1/left circumflex 90% large vessel. 6. Right coronary artery mid subtotal with the distal RCA subtotal and collateralization from the left coronary system to the RCA. The RCA is a small to moderate-sized vessel. Conclusion and plan; This patient has a chronic symptoms of angina shortness of breath Medical history history of hypertension no history of diabetes. He has severe multivessel coronary artery disease with severe LV systolic dysfunction Moderate to severe mitral regurgitation 1. We will transfer the patient for evaluation by CV surgeon for CABG/RC guided mitral valve surgery 2. Medical therapy with beta-fidelia carvedilol, lisinopril, aspirin, atorvastatin, diuretic as needed and Aldactone. #3 plan of cardiac care and finding explained in detail to the patient and he agreed for transfer for evaluation for bypass surgery. Krissy Maldonado MD,FACC,[facility]
[2020-09-23] MEDS: Senna/Docusate Sodium 1 Tablet 2 TABLET PO (13:26)
--- NOTE | 2020-09-23 14:29 | EKG12_ITS ---
Test Reason : CP Blood Pressure : / mmHG Vent. Rate : 060 BPM Atrial Rate : 060 BPM P-R Int : 188 ms QRS Dur : 118 ms QT Int : 476 ms P-R-T Axes : 022 070 131 degrees QTc Int : 476 ms Normal sinus rhythm Septal infarct , age undetermined ST & T wave abnormality, consider lateral ischemia Abnormal ECG When compared with ECG of 23-SEP-2020 05:40, MANUAL COMPARISON REQUIRED, DATA IS UNCONFIRMED Confirmed by BELLA FLOOD, LISA ([id number]), purchase request editor DARNELL MERRITT ([id number]) on 09/29/2020 9:13:33 AM Referred By: DAVID LYNN Confirmed By:LISA BLANCO MD
[2020-09-23] MEDS: Morphine 2 MG/ML Syringe IV (14:45)
[2020-09-23] MEDS: 0.9% Normal Saline 1,000 ML 25 ML IV (15:09)
[2020-09-23] MEDS: Lidocaine 5% Patch 1 PATCH TOPICAL (16:30)
[2020-09-23] MEDS: Nitroglycerin Infusion 250 ML 3 MG CONT INF (16:49)
[2020-09-23] MEDS: Furosemide 40 MG/4 ML Vial IV (18:22)
[2020-09-23 21:17] LABS: Partial Thromboplast Time 47.9 Seconds (24.1-36.2)
[2020-09-23] MEDS: Atorvastatin Calcium 20 MG Tablet PO (21:40)
[2020-09-23] MEDS: Heparin Injection (Vial) 5,000 UNIT/ML VIAL IV (21:43)
[2020-09-24] VITALS: BP 132/88; PULSE 62; RESP 15; O2SAT 94
[2020-09-24 01:00] VITALS: BP 129/88; PULSE 67; RESP 16; O2SAT 98
[2020-09-24 01:30] VITALS: BP 123/82; PULSE 67; RESP 15; TEMP 36.6; O2SAT 99
[2020-09-24 02:30] VITALS: BP 100/57; PULSE 64; RESP 13
[2020-09-24 03:00] VITALS: BP 128/78; PULSE 72; PULSE 78; RESP 16
[2020-09-24] MEDS: Acetaminophen 325 MG Tablet 650 MG PO (03:08)
--- NOTE | 2020-09-24 03:36 | NURSING ---
Report called to KULDIP Wise at [facility] at 0250 for patient being transferred. RN notified Chana, significant other of patient being transferred to [facility] at 0258.
[2020-09-24 03:44] LABS: Absolute Lymphocyte Count 2.16 X10^3/uL (0.83-4.51); Absolute Neutrophil Count 4.7 X10^3/uL (2.0-7.7); Basophil# 0.05 X10^3/uL; Basophil% 0.6 % (0-1); Eosinophils% 2.6 % (0-5); Hematocrit 50.7 % (40-54); Hemoglobin 16.9 g/dL (13.0-16.5); Lymphocyte # 2.16 X10^3/ul (0.83-4.51); Lymphocyte % 28.1 % (19-41); Mean Corp Hgb Conc 33.3 g/dL (32-36); Mean Corpuscular Hgb 30.5 pg (27.0-32.0); Mean Corpuscular Volume 91.4 fL (80-94); Mean Platelet Vol. 11.1 fl (6.2-12.0); Monocyte# 0.63 X10^3/uL; Monocyte% 8.2 % (0-10); NRBC Flagged by Analyzer 0 % (0-5); Neutrophil # 4.65 X10^3/uL (2.7-7.7); Neutrophil % 60.4 % (47-70); Platelet Count 179 K/mm3 (150-450); RBC Distribution Width SD 43.3 fl (35.1-43.9); Red Blood Count 5.55 M/mm3 (4.6-6.2); White Blood Count 7.7 K/mm3 (4.4-11.0)
[2020-09-24 03:53] LABS: Partial Thromboplast Time 60.3 Seconds (24.1-36.2)
[2020-09-24 04:21] LABS: AST(SGOT) 29 U/L (15-37); Alanine Aminotransfer ALT/SGPT 29 U/L (16-61); Albumin, Serum 3.9 g/dL (3.2-5.0); Alkaline Phosphatase 122 U/L (45-117); Anion Gap 8 (5-15); BUN 24 mg/dL (7-18); Calcium,Total 8.5 mg/dL (8.5-10.1); Chloride 103 mmol/L (98-107); Creatinine, Serum 1.26 mg/dL (0.70-1.30); EST Glomerular Filtration Rate 62 mL/min (>60); Est Glom Filt Rate - Afr Amer 75 mL/min (>60); Estimated Creatinine Clearance 66.72 ml/min; Globulin 3.8 g/dL (2.2-4.2); Glucose 102 mg/dL (74-106); Lipase 223 U/L (73-393); Potassium 4.2 mmol/L (3.5-5.1); Protein, Total 7.7 g/dL (6.4-8.2); Sodium Level 137 mmol/L (136-145)
--- NOTE | 2020-09-24 09:15 | DS.PCM_ITS ---
Providers Date of Admission: 09/22/20 Primary Care Physician: Dr. Julius Myles MD Consultations 09/22/20 11:09 Consult: Cardiology Routine Consulting Provider: Krissy Maldonado Reason for Consult: Non-STEMI EMERGENT Consult: No MD Notified: Yes Date Notified: 09/22/20 Time Notified: 10:33 Method of Notification: md to md Comments:: Notified by ER physician Reason For Visit: NONSTEMI Diagnosis Discharge Diagnosis (1) Non-STEMI (non-ST elevated myocardial infarction): Status: Acute Code(s): I21.4 - Non-ST elevation (NSTEMI) myocardial infarction (2) History of pancreatitis: Status: Chronic Code(s): Z87.19 - Personal history of other diseases of the digestive system (3) GERD (gastroesophageal reflux disease): Status: Chronic Code(s): K21.9 - Gastro-esophageal reflux disease without esophagitis Medications at Discharge Home Medications NK 09/22/20 Hospital Course Procedures 2-D Echocardiogram, Cardiac catheterization and EKG Summary of Care Provided Minutes Spent on Discharge: 32 Hospital Course: This is a 60 years old male patient presented to the emergency room with 2 months history of intermittent exertional chest pain and shortness of breath and he was found to have findings consistent with acute non-ST elevation NV as well as mild acute systolic congestive heart failure. Patient does have a family history of premature CAD as his father had his first heart attack at age of 47. His troponin was elevated. His EKG revealed T wave inv ersion and ST segment depression in V4, V5 and V6, no acute ST elevation. Patient was admitted to PCU, started on IV heparin drip, aspirin, statins, beta- blockers and ORLIN inhibitors. Cardiology consulted and patient underwent cardiac catheterization, found to have severe multivessel CAD with severe LV systolic dysfunction and moderate to severe mitral regurgitation. Cardiology recommended transfer to a tertiary care center for evaluation for CABG and valve replacement. 2D echocardiogram revealed ejection fraction of 15 to 20%, severe LV systolic dysfunction, moderate to severe mitral regurg. Patient had a history of pancreatitis, found to have elevated lipase during this admission of 1687. Patient reported mild epigastric discomfort. Repeat lipase was 223. CT scan abdomen and pelvis revealed punctate calcification of the [place] pancreas, no acute pancreatitis. Dr. Maldonado made the arrangement for the patient to go to [facility] for evaluation for CABG and valve replacement and he was accepted. Patient was transferred to [facility] in a stable condition. Physical Exam Narrative Patient was not examined on the day of transfer because he was transferred around 3 AM in the morning. Weight / BMI Weight Weight: 197 lb 1.492 oz Body Mass Index (BMI) 26.7 ABG / Lab / Microbiology Data Result Diagrams: 09/24/20 03:38 09/24/20 03:38 Laboratory: Laboratory Results - last 24 hr 09/23/20 09/24/20 09/24/20 21:00 03:38 03:38 WBC 7.7 RBC 5.55 Hgb 16.9 H Hct 50.7 MCV 91.4 MCH 30.5 MCHC 33.3 RDW Std Deviation 43.3 RDW Coeff of Marquita 13.0 Plt Count 179 MPV 11.1 Immature Gran % (Auto) 0.100 Neut % (Auto) 60.4 Lymph % (Auto) 28.1 [place] % (Auto) 8.2 Eos % (Auto) 2.6 Baso % (Auto) 0.6 Absolute Neuts (auto) 4.7 Absolute Lymphs (auto) 2.16 Nucleated RBC % 0 APTT 47.9 H Sodium 137 Potassium 4.2 Chloride 103 Carbon Dioxide 26.0 Anion Gap 8 BUN 24 H Creatinine 1.26 Estim Creat Clear Calc 66.72 Est GFR (MDRD) Af Amer 75 Est GFR (MDRD) Non-Af 62 BUN/Creatinine Ratio 19.0 Glucose 102 Calcium 8.5 Total Bilirubin 0.90 AST 29 ALT 29 Alkaline Phosphatase 122 H Total Protein 7.7 Albumin 3.9 Globulin 3.8 Albumin/Globulin Ratio 1.0 Lipase 223 09/24/20 03:38 WBC RBC Hgb Hct MCV MCH MCHC RDW Std Deviation RDW Coeff of Marquita Plt Count MPV Immature Gran % (Auto) Neut % (Auto) Lymph % (Auto) [place] % (Auto) Eos % (Auto) Baso % (Auto) Absolute Neuts (auto) Absolute Lymphs (auto) Nucleated RBC % APTT 60.3 H Sodium Potassium Chloride Carbon Dioxide Anion Gap BUN Creatinine Estim Creat Clear Calc Est GFR (MDRD) Af Amer Est GFR (MDRD) Non-Af BUN/Creatinine Ratio Glucose Calcium Total Bilirubin AST ALT Alkaline Phosphatase Total Protein Albumin Globulin Albumin/Globulin Ratio Lipase Radiography Diagnostic Testing: Radiology Impression Echocardiogram 09/22/20 11:09 Interpretation Summary The estimated ejection fraction is EF 15-20% %. Severe LV systolic function with anteroapical,septal and infeobasal Hypokinesia Moderate LAE moderate-severe MR ___ Ordering Physician: Vidhya Vazquez Referring Physician: JULIUS MYLES Performed By: Coby Olvera RUST Abdomen/Pelvis CT 09/23/20 08:36 IMPRESSION: Mild degree of bibasilar atelectasis with minimal pleural effusions. Stable 1 cm cyst in the superior medial aspect of the right lobe of the liver. Punctate calcification in the head of the pancreas. Findings suggestive of small gallstones and sludge in the gallbladder lumen. Electronically Signed: Nelson Monzon MD at 10:01 EDT , Service support , Meaningful Use Info Meaningful Use Diagnoses (Choose all that apply): AMI AMI/Post PCI/Angioplasty Aspirin given w/in 24hrs of arrival?: Yes ASA at discharge?: Yes Antiplatelet Therapy at Discharge:: Yes Statins at discharge?: Yes [place]/ARB at discharge?: Yes Beta Pieter at discharge?: Yes Done w/ Acute NV measure.: Yes Documented LVEF (%): 15 Discharge Plan Admission Admit Date/Time: 09/22/20 10:37 Attending Provider: Vidhya Vazquez Primary Care Provider: Julius Myles Consulting Providers: Krissy Maldonado Instructions Patient Instructions: ED GERD (Adult), ED Heart Disease Risk Factors, ED Pancreatitis Additional Instructions / Restrictions: Patient Problems: Altered Health Status related to Hospitalization Patient Goals: *Optimal Level of Health *Keep Appointments *Medication Compliance *Remain SafePatient Problems: Altered Health Status related to Hospitalization Patient Goals: *Optimal Level of Health *Keep Appointments *Medication Compliance *Remain Safe Discharge Orders/Prescriptions Prescriptions: No Action NK RF: 0 Referrals / Follow Up: Julius Myles MD [Primary Care Provider] - Disposition Disposition (needs filled in before D/C Order can be placed): Acute Care Hospital Charges/Coding Visit Charges Inpatient E&M: 25413 Disch Hosp
== END 2020-09-24 03:45 | disposition short-term general hospital (02) | DRG 190 ==
LOC: ED 09:30 → PCU 10:51
PROVIDERS: Internal Medicine Interventional Cardiology; Admitting Provider Hospitalist; Emergency Provider Emergency Medicine; PCP Internal Medicine; Visit Provider Hospitalist
DX: I21.4 Non-ST elevation (NSTEMI) myocardial infarction (principal); K21.9 Gastro-esophageal reflux disease without esophagitis; I11.0 Hypertensive heart disease with heart failure; I50.21 Acute systolic (congestive) heart failure; I25.10 Atherosclerotic heart disease of native coronary artery without angina pectoris; I34.0 Nonrheumatic mitral (valve) insufficiency; Z87.19 Personal history of other diseases of the digestive system; Z82.49 Family history of ischemic heart disease and other diseases of the circulatory system; Z88.0 Allergy status to penicillin
CPT/HCPCS: 36415; 71045; 71275; 74176; 80048; 80053; 80061; 80076; 83036; 83690; 84443; 84484; 85025; 85610; 85730; 93005; 93306; 93458; 99152; 99153; 99285; J7030; J7040; Q9957; Q9967; A4216; C1769; C1894; C8929; J1940

== ENCOUNTER 2021-03-19 19:17 | Observation (INO) | payer MEDICAID, SELFPAY ==
[2021-03-19] VITALS (7 sets, daily range): BP systolic 162–192; BP diastolic 80–98; PULSE 64–72; RESP 11–18; TEMP 36.3–37.2; O2SAT 95–96; BMI 26.4
[2021-03-19 20:52] LABS: AST(SGOT) 15 U/L (15-37); Alanine Aminotransfer ALT/SGPT 19 U/L (16-61); Albumin, Serum 3.9 g/dL (3.2-5.0); Alkaline Phosphatase 125 U/L (45-117); Bilirubin, Direct 0.15 mg/dL (0.00-0.30); Globulin 4.3 g/dL (2.2-4.2); Protein, Total 8.2 g/dL (6.4-8.2)
[2021-03-19 21:00] LABS: Lipase 199 U/L (73-393)
[2021-03-19 21:02] LABS: ALB/GLOB Ratio 0.9 RATIO (0.9-2.4); AST(SGOT) 15 U/L (15-37); Alanine Aminotransfer ALT/SGPT 19 U/L (16-61); Albumin, Serum 3.9 g/dL (3.2-5.0); Alkaline Phosphatase 124 U/L (45-117); Anion Gap 6 (5-15); BUN 17 mg/dL (7-18); BUN/Creat Ratio 13.6 RATIO (10-20); Calcium,Total 10.1 mg/dL (8.5-10.1); Chloride 103 mmol/L (98-107); Creatinine, Serum 1.25 mg/dL (0.70-1.30); EST Glomerular Filtration Rate 62 mL/min (>60); Est Glom Filt Rate - Afr Amer 75 mL/min (>60); Estimated Creatinine Clearance 67.25 ml/min; Globulin 4.3 g/dL (2.2-4.2); Glucose 107 mg/dL (74-106); Potassium 3.9 mmol/L (3.5-5.1); Protein, Total 8.2 g/dL (6.4-8.2); Sodium Level 140 mmol/L (136-145)
--- NOTE | 2021-03-19 21:12 | CT_ITS ---
HISTORY: abd pain TECHNIQUE: Helically acquired images were obtained of the abdomen and pelvis following the intravenous administration of 100mL Isovue-300 Iodinated contrast. No Oral contrast was administered. Coronal and sagittal reformats obtained. A radiation dose optimization technique was used for this scan. COMPARISON: December 07, 2017 FINDINGS: # of images incl. paperwork: 419 LUNG BASES: Unremarkable. LIVER T BILIARY TRACT: Unremarkable gallbladder. No acute hepatic finding. ADRENAL GLANDS: Unremarkable. SPLEEN: Unremarkable. PANCREAS: Mild stranding at the pancreatic head and duodenum. No pancreatic necrosis. KIDNEYS/URETERS/BLADDER: No hydronephrosis or perinephric inflammation. Unremarkable ureters and bladder. LYMPH NODES: Few subcentimeter reactive lymph nodes anterior to the pancreatic head. STOMACH, SMALL AND LARGE BOWEL: No acute gastric finding. Mild inflammatory stranding and wall thickening of the decompressed duodenum with stranding about the proximal pancreatic head, axial image 43. 1.6 cm duodenal diverticulum distal to the area of inflammation without wall thickening. No other small bowel obstruction or gross wall thickening. Normal appendix. No acute colonic finding. Distal colonic diverticulosis without evidence of diverticulitis. ASCITES/FREE AIR: No free fluid or free air. AORTA: Atherosclerosis without ectasia. PELVIS: Unremarkable. MUSCULOSKELETAL: No acute osseous finding. Fat-containing hernias without inflammation. Sternotomy wires are midline and intact. CT/Abdomen/Pelvis W IV Cont ONLY IMPRESSION: Inflammatory stranding about the pancreatic head and duodenum with mild duodenal wall thickening compatible with pancreatic head pancreatitis or duodenitis. Correlate with pancreatic labs. Diverticulum distal to the area of duodenal inflammation at the pancreatic head without evidence of diverticulitis. Individualized dose optimization techniques were used for this CT. at 2313 Reported and signed by: Arvind Ladd MD Electronically Signed: Arvind Ladd MD at 23:12 EST Tel , Service support ,
[2021-03-19] MEDS: Morphine 4 MG/ML Syringe IV (21:20)
[2021-03-19] MEDS: 0.9% Normal Saline 1,000 ML 999 ML IV (21:20)
[2021-03-19] MEDS: Ondansetron 4 MG/2 ML Vial IV (21:20)
[2021-03-19 21:33] LABS: Mucous, Urine 0 SEEN /hpf (<or=2+); Red Blood Cells-Urine 0 SEEN /hpf (0-5); Squamous Epithelial Cells - UA 0 SEEN /hpf (0-5); White Blood Cells 0 SEEN /hpf (0-5)
[2021-03-19 21:36] LABS: Absolute Lymphocyte Count 1.34 X10^3/uL (0.83-4.51); Absolute Neutrophil Count 6.9 X10^3/uL (2.0-7.7); Basophil# 0.03 X10^3/uL; Basophil% 0.3 % (0-1); Eosinophil# 0.09 X10^3/uL; Hematocrit 48.8 % (40-54); Hemoglobin 17.1 g/dL (13.0-16.5); Lymphocyte # 1.34 X10^3/ul (0.83-4.51); Lymphocyte % 15.1 % (19-41); Mean Corpuscular Hgb 30.3 pg (27.0-32.0); Mean Corpuscular Volume 86.5 fL (80-94); Mean Platelet Vol. 10.4 fl (6.2-12.0); Monocyte# 0.49 X10^3/uL; Monocyte% 5.5 % (0-10); NRBC Flagged by Analyzer 0 % (0-5); Neutrophil # 6.91 X10^3/uL (2.7-7.7); Neutrophil % 77.7 % (47-70); Platelet Count 229 K/mm3 (150-450); RBC Distribution Width CV 12.7 % (11.6-14.6); RBC Distribution Width SD 40.2 fl (35.1-43.9); Red Blood Count 5.64 M/mm3 (4.6-6.2); White Blood Count 8.9 K/mm3 (4.4-11.0)
[2021-03-19 21:36] LABS: Color, Urine Yellow (Yellow); Glucose, Dipstick Normal (Normal); Ketone-Dipstick Negative (Negative); Leukocyte Esterase-Dipstick Negative /ul (Negative); Nitrite-Dipstick Negative (Negative); Occult Blood-Urine Negative /ul (Negative); Protein-Dipstick Negative (Negative); Urine Bilirubin Dipstick Negative (Negative); Urine Clarity Sl. Cloudy (Clear); Urine Urobilinogen Normal (Normal)
[2021-03-19 21:51] LABS: Amorphous Sediment 1+; Bacteria RARE /hpf (None Seen)
[2021-03-19] MEDS: HYDROmorphone 1 MG/ML Syringe IV (22:48)
--- NOTE | 2021-03-19 23:54 | HP.PCM.HOS_ITS ---
HPI - General General Date of Admission: 03/19/21 HPI Narrative CLARICE PHILLIP, is a 60 M with history of coronary artery disease status post quadruple bypass in September 2020 when he was admitted for non-STEMI came to ER with abdominal pain mainly epigastric for 7 days. The abdominal pain is more localized to epigastric, left lumbar paraspinal region, constant, 10/10 intensity, worse for last 2 days. Patient has nausea but denies vomiting. Denies GI bleed. Patient had a small bowel movement in the morning today. Patient denies drinking alcohol in the last 7 days but drinks occasionally. Lipase is normal but CT abdomen shows features of pancreatitis around pancreatic head and duodenum with mild duodenal wall thickening. He also diverticulum noted distal to the area of duodenal inflammation without evidence of diverticulitis Patient did not had cholecystectomy. During previous hospitalization patient was transferred to [facility] four-vessel CABG, EF 15 to 20%, moderate to severe MR. At that time patient had mild epigastric discomfort, elevated lipase [address] revealed punctate calcification of the [place] pancreas. [facility] Medical History Hypertension Pancreatitis Home Medications NK 09/22/20 [History Last Taken Unknown] Allergy/AdvReac Type Severity Reaction Status Date / Time Penicillins Allergy Other Verified 03/19/21 19:19 Family History Other CAD (coronary artery disease) Cancer Surgical History History of carpal tunnel surgery History of open heart surgery Social History Smoking Status: Never smoker details: Drinks occasionally. ROS ROS Narrative Constitutional: Reports fatigue and weakness loss of appetite. HEENT: Reports systems reviewed and no addt'l complaints, except as documented Respiratory/Chest: Denies chest pain, shortness of breath at rest or with exertion Gastrointestinal: Nausea. Rest as in HPI Genitourinary: Denies burning urination or new urinary tract symptoms Musculoskeletal: Denies joint pain and limited range of motion Neurologic: Denies seizure-like activity skin: No ulcer. No rash Endocrinology: Reports systems reviewed and no addt'l complaints, except as documented Hematologic/Lymphatic: Reports systems reviewed and no addt'l complaints, except as documented Rest 12 ROS are negative except as mentioned in HPI Vital Signs Vital Signs Vital Signs: 03/19/21 19:18 03/19/21 19:19 03/19/21 20:22 Temperature 97.6 F L 97.6 F L 98.9 F Temperature Source Temporal Temporal Temporal Pulse Rate 71 71 72 Respiratory Rate 16 16 18 Blood Pressure 174/98 H 174/98 H 180/94 H Blood Pressure Mean 123 123 122 Pulse Ox 95 95 95 Oxygen Delivery Method Room Air Room Air Room Air 03/19/21 21:07 03/19/21 21:26 03/19/21 22:30 Temperature 98.4 F 97.4 F L Temperature Source Temporal Temporal Pulse Rate 69 64 Respiratory Rate 11 L 16 14 Blood Pressure 162/92 H 192/80 H Blood Pressure Mean 115 117 Pulse Ox 96 95 96 Oxygen Delivery Method Room Air Room Air Room Air 03/19/21 23:00 Temperature 97.4 F L Temperature Source Temporal Pulse Rate 67 Respiratory Rate 14 Blood Pressure 168/81 H Blood Pressure Mean 110 Pulse Ox 95 Oxygen Delivery Method Weight Weight: 195 lb Body Mass Index (BMI) 26.4 Physical Exam Narrative General: Alert, Oriented x3, Cooperative HEENT: Atraumatic, PERRLA, EOMI, Normocephalic Oral: No Gingival or Mucosal Lesions/ Ulcerations Neck: Supple, No JVD, Negative Carotid Bruits Lungs: Air entry diminished in left lung base. No crepitation/rhonchi. No tachypnea or hypoxia. Cardiovascular: Regular rate, Regular Rhythm, Normal S1, Normal S2, No murmurs Abdomen: Bowel sounds sluggish. Tenderness present over epigastric region, RUQ, LLQ and left lumbar paraspinal region. Mild guarding but no rigidity. No palpable mass. : No suprapubic tenderness. Extremities: No edema, Capillary Refill Less than 3 Seconds Skin: No rashes, No breakdown Musculoskeletal: No Tenderness to Palpation of Joints or Extremities Neurological: Cranial nerves II-XII grossly intact, DTR 2+/4 and Symmetrical, Neuro grossly intact Psych/Mental Status: Normal Affect, Appropriate. Results Lab / Micro Data Result Diagrams: 03/19/21 20:20 03/19/21 20:20 Labs: Laboratory Results - last 24 hr 03/19/21 20:20: Total Bilirubin 0.50, Direct Bilirubin 0.15, AST 15, ALT 19, Alkaline Phosphatase 125 H, Total Protein 8.2, Albumin 3.9, Globulin 4.3 H 03/19/21 20:20: Sodium 140, Potassium 3.9, Chloride 103, Carbon Dioxide 31.0, Anion Gap 6, BUN 17, Creatinine 1.25, Estim Creat Clear Calc 67.25, Est GFR (MDRD) Af Amer 75, Est GFR (MDRD) Non-Af 62, BUN/Creatinine Ratio 13.6, Glucose 107 H, Calcium 10.1, Total Bilirubin 0.60, AST 15, ALT 19, Alkaline Phosphatase 124 H, Total Protein 8.2, Albumin 3.9, Globulin 4.3 H, Albumin/Globulin Ratio 0.9 03/19/21 20:20: Lipase 199 03/19/21 20:20: WBC 8.9, RBC 5.64, Hgb 17.1 H, Hct 48.8, MCV 86.5, MCH 30.3, MCHC 35.0, RDW Std Deviation 40.2, RDW Coeff of Marquita 12.7, Plt Count 229, MPV 10.4, Immature Gran % (Auto) 0.400, Neut % (Auto) 77.7 H, Lymph % (Auto) 15.1 L, [place] % (Auto) 5.5, Eos % (Auto) 1.0, Baso % (Auto) 0.3, Absolute Neuts (auto) 6.9, Absolute Lymphs (auto) 1.34, Nucleated RBC % 0 03/19/21 21:25: Urine Color Yellow, Urine Clarity Sl. Cloudy, Urine pH 8.0, Ur Specific [place] 1.010, Urine Protein Negative, Urine Glucose (UA) Normal, Urine Ketones Negative, Urine Occult Blood Negative, Urine Nitrite Negative, Urine Bilirubin Negative, Urine Urobilinogen Normal, Ur Leukocyte Esterase Negative, Urine RBC 0 SEEN, Urine WBC 0 SEEN, Ur Squamous Epith Cells 0 SEEN, Amorphous Sediment 1+, Urine Bacteria RARE, Urine Mucus 0 SEEN Radiology Impression Abdomen/Pelvis CT 03/19/21 21:12 IMPRESSION: Inflammatory stranding about the pancreatic head and duodenum with mild duodenal wall thickening compatible with pancreatic head pancreatitis or duodenitis. Correlate with pancreatic labs. Diverticulum distal to the area of duodenal inflammation at the pancreatic head without evidence of diverticulitis. Individualized dose optimization techniques were used for this CT. at 2313 Reported and signed by: Arvind Ladd MD Electronically Signed: Arvind Ladd MD at 23:12 EST Tel , Service support , Assessment & Plan Assessment/Plan (1) Acute pancreatitis: PLAN: 1. Acute on recurrent pancreatitis: Patient is being admitted as MedSurg status. Although lipase is normal but patient has severe abdominal pain and CT abdomen finding is consistent with acute pancreatitis. Keep n.p.o. IV fluid Ringer lactate 150 mill per hour. Patient has hemoconcentration. Monitor intake and output and signs of fluid overload as patient EF is 15 to 20%. Right upper quadrant sonogram ordered to rule out acute cholecystitis/gallstone. Monitor CBC, CMP and lipase tomorrow a.m. 2. Coronary artery status post four-vessel CABG, chronic systolic heart failure, chronic MR: In , patient had four-vessel CABG in [facility] but no valve replacement. Patient denies chest pain/pressure, dyspnea on exertion or shortness of breath. 3. GERD: On PPI IV daily. Patient states he is vaccinated with COVID-19. VT prophylaxis: Moderate to high risk: Lovenox 40 subcu daily. Living will/advanced directive/end of life care: Patient does not have living will or advanced directive. After discussion of benefits/risks procedures involved with full code, DNR CC arrest and DNR CC, the patient opted for full code. Patient does want artificial life support including intubation, tube feed, ventilator and/chest compression, central venous catheter, vasopressor and DC shock if needed Total time spent in [id number] encounter in discussion of advanced directive 16 minutes. Charges/Coding Visit Charges Inpatient E&M: 67568 Init Hosp L3 Procedures Hospitalists Procedures: 60303 Advncd Care Plan 30 Min
--- NOTE | 2021-03-19 23:58 | EX.ED.DYSGE1 ---
HPI History of Present Illness Chief Complaint: Abd Pain Narrative Narrative: Patient is a 60-year-old male who states approximately 6 months ago he had acute pancreatitis. Patient reports that he was having some mild midepigastric abdominal pain for the past 5 to 7 days that worsened about 3 hours prior to arrival. He denies any recent alcohol use but does report being a previous alcoholic. Patient also denies any history of gallbladder dysfunction. He states that this time his pain feels similar nature to his bout of pancreatitis and with concern for this presents for evaluation [facility] Medical History Hypertension Pancreatitis Home Medications NK 09/22/20 [History Last Taken Unknown] Allergy/AdvReac Type Severity Reaction Status Date / Time Penicillins Allergy Other Verified 03/19/21 19:19 Family History Other CAD (coronary artery disease) Cancer Surgical History History of carpal tunnel surgery History of open heart surgery Social History Smoking Status: Never smoker details: Drinks occasionally. ROS ROS ED Constitutional Constitutional ED: Denies chills or fever(s) ENT ENT ED: Denies sore throat Cardiovascular Cardiovascular: Denies chest pain Respiratory/Chest Respiratory/Chest: Denies cough or dyspnea Gastrointestinal Gastrointestinal: Reports abdominal pain and nausea; Denies diarrhea or vomiting Genitourinary Genitourinary ED: Denies dysuria Musculoskeletal Musculoskeletal: Denies myalgias Integumentary Denies rash Neurologic Neurologic: Denies headache(s) Hematologic/Lymphatic Hematologic/Lymphatic: Denies easy bleeding or easy bruising EXAM Physical Exam Const Vital Signs: 03/19/21 19:18 03/19/21 19:19 03/19/21 20:22 Temperature 97.6 F L 97.6 F L 98.9 F Temperature Source Temporal Temporal Temporal Pulse Rate 71 71 72 Respiratory Rate 16 16 18 Blood Pressure 174/98 H 174/98 H 180/94 H Blood Pressure Mean 123 123 122 Pulse Ox 95 95 95 Oxygen Delivery Method Room Air Room Air Room Air 03/19/21 21:07 03/19/21 21:26 03/19/21 22:30 Temperature 98.4 F 97.4 F L Temperature Source Temporal Temporal Pulse Rate 69 64 Respiratory Rate 11 L 16 14 Blood Pressure 162/92 H 192/80 H Blood Pressure Mean 115 117 Pulse Ox 96 95 96 Oxygen Delivery Method Room Air Room Air Room Air 03/19/21 23:00 Temperature 97.4 F L Temperature Source Temporal Pulse Rate 67 Respiratory Rate 14 Blood Pressure 168/81 H Blood Pressure Mean 110 Pulse Ox 95 Oxygen Delivery Method Positive well nourished and well developed General Appearance ED: well developed HEENT Reports dry mucous membranes Mouth ED: Yes dry mucous membranes Mouth: dry mucous membranes Eyes PERRL and EOMs intact bilaterally General Eye ED: Negative for scleral icterus Neck supple Resp normal respiratory effort and clear to auscultation bilaterally Cardio regular rate and regular rhythm Rate: other Other Details: Radial pulses are +2-4 bilaterally are equal and symmetric GI non-distended and no masses GI Narrative: Abdomen is soft and nondistended with hypoactive bowel sounds. Patient has pain with palpation in the midepigastric region with voluntary guarding at the site. However no peritoneal signs or pulsatile mass Auscultation: normoactive bowel sounds Palpation: soft Extremity normal to inspection Neuro oriented x3 and CN's II-XII intact bilaterally Sensorium / Orientation: alert Motor Exam: strength 5/5 throughout Psych mental status grossly normal Skin no rashes or lesions noted General Skin Exam: Negative for jaundice MDM MDM MDM Narrative Medical decision making narrative: Patient presented to the ER with physical exam findings concerning for acute pancreatitis. Based on his pain and recent history of this I elected to perform CT scan along with basic lab. Labs revealed no clinically significant findings but his CAT scan showed inflammatory changes around the pancreatic head consistent with or concerning for acute pancreatitis. The patient was given morphine and Dilaudid and with this he did have improvement of pain but not resolution. Therefore at this time as he has a recent history of pancreatitis as well as CT scan showing inflammation around the pancreatic head and persistent/intractable pain I do feel patient should be admitted to the hospital for further care. The case was discussed with medicine on-call and they are agreeable to this and will admit the patient at this time Lab Data Attestation: I reviewed the patient's lab results. Labs: Laboratory Results - last 24 hr 03/19/21 03/19/21 03/19/21 20:20 20:20 20:20 WBC RBC Hgb Hct MCV MCH MCHC RDW Std Deviation RDW Coeff of Marquita Plt Count MPV Immature Gran % (Auto) Neut % (Auto) Lymph % (Auto) [place] % (Auto) Eos % (Auto) Baso % (Auto) Absolute Neuts (auto) Absolute Lymphs (auto) Nucleated RBC % Sodium 140 Potassium 3.9 Chloride 103 Carbon Dioxide 31.0 Anion Gap 6 BUN 17 Creatinine 1.25 Estim Creat Clear Calc 67.25 Est GFR (MDRD) Af Amer 75 Est GFR (MDRD) Non-Af 62 BUN/Creatinine Ratio 13.6 Glucose 107 H Calcium 10.1 Magnesium Total Bilirubin 0.50 0.60 Direct Bilirubin 0.15 AST 15 15 ALT 19 19 Alkaline Phosphatase 125 H 124 H Total Protein 8.2 8.2 Albumin 3.9 3.9 Globulin 4.3 H 4.3 H Albumin/Globulin Ratio 0.9 Lipase 199 Urine Color Urine Clarity Urine pH Ur Specific [place] Urine Protein Urine Glucose (UA) Urine Ketones Urine Occult Blood Urine Nitrite Urine Bilirubin Urine Urobilinogen Ur Leukocyte Esterase Urine RBC Urine WBC Ur Squamous Epith Cells Amorphous Sediment Urine Bacteria Urine Mucus 03/19/21 03/19/21 03/19/21 20:20 20:20 21:25 WBC 8.9 RBC 5.64 Hgb 17.1 H Hct 48.8 MCV 86.5 MCH 30.3 MCHC 35.0 RDW Std Deviation 40.2 RDW Coeff of Marquita 12.7 Plt Count 229 MPV 10.4 Immature Gran % (Auto) 0.400 Neut % (Auto) 77.7 H Lymph % (Auto) 15.1 L [place] % (Auto) 5.5 Eos % (Auto) 1.0 Baso % (Auto) 0.3 Absolute Neuts (auto) 6.9 Absolute Lymphs (auto) 1.34 Nucleated RBC % 0 Sodium Potassium Chloride Carbon Dioxide Anion Gap BUN Creatinine Estim Creat Clear Calc Est GFR (MDRD) Af Amer Est GFR (MDRD) Non-Af BUN/Creatinine Ratio Glucose Calcium Magnesium 2.5 Total Bilirubin Direct Bilirubin AST ALT Alkaline Phosphatase Total Protein Albumin Globulin Albumin/Globulin Ratio Lipase Urine Color Yellow Urine Clarity Sl. Cloudy Urine pH 8.0 Ur Specific [place] 1.010 Urine Protein Negative Urine Glucose (UA) Normal Urine Ketones Negative Urine Occult Blood Negative Urine Nitrite Negative Urine Bilirubin Negative Urine Urobilinogen Normal Ur Leukocyte Esterase Negative Urine RBC 0 SEEN Urine WBC 0 SEEN Ur Squamous Epith Cells 0 SEEN Amorphous Sediment 1+ Urine Bacteria RARE Urine Mucus 0 SEEN Radiography Diagnostic Testing: Clinical Impression(s) from Imaging Studies Abdomen/Pelvis CT 03/19/21 21:12 IMPRESSION: Inflammatory stranding about the pancreatic head and duodenum with mild duodenal wall thickening compatible with pancreatic head pancreatitis or duodenitis. Correlate with pancreatic labs. Diverticulum distal to the area of duodenal inflammation at the pancreatic head without evidence of diverticulitis. Individualized dose optimization techniques were used for this CT. at 2313 Reported and signed by: Arvind Ladd MD Electronically Signed: Arvind Ladd MD at 23:12 EST Tel , Service support , Discharge Plan Dx/Rx/DC Orders Clinical Impression: Acute pancreatitis Disposition Disposition: Acute Care Hospital [facility] Discharge Date/Time: 03/20/21 00:53
[2021-03-20] VITALS (10 sets, daily range): BP systolic 155–193; BP diastolic 82–97; PULSE 67–95; RESP 15–18; TEMP 36.2–37.2; O2SAT 94–98; BMI 17.4
[2021-03-20] MEDS: Ondansetron 4 MG/2 ML Vial IV (02:00)
[2021-03-20] MEDS: Lactated Ringers 1,000 ML 150 ML IV ×2 (02:00→09:01)
[2021-03-20] MEDS: HYDROmorphone 0.5 MG/0.5 ML SYRINGE IV (02:04)
[2021-03-20] MEDS: Enoxaparin 40 MG/0.4 ML Syringe SC (02:04)
[2021-03-20 02:27] LABS: Magnesium 2.5 mg/dL (1.6-2.6)
--- NOTE | 2021-03-20 03:39 | NURSING ---
RAPID COVID TEST RESULT NOTED NEGATIVE.
--- NOTE | 2021-03-20 05:55 | US_ITS ---
HISTORY: Acute pancreatitis, r/o gall stone. TECHNIQUE: Estrella scale and color Doppler imaging was performed of the right upper quadrant. COMPARISON: CT abdomen and pelvis 03/19/21 FINDINGS: # of images incl. paperwork: 137 LIVER: Normal in size and echotexture without focal parenchymal lesion or ductal dilatation. GALLBLADDER: No calculi. Mild wall thickening with anterior wall echogenic focus producing ringdown artifact. BILE DUCTS: The extrahepatic common duct measures 4 mm in AP diameter, which is within normal limits for the patient's age. PANCREAS: No acute abnormality of the visualized portion. RIGHT KIDNEY: 11.1 cm. No hydronephrosis US/Abdomen Limited IMPRESSION: Adenomyomatosis of the gallbladder without gallstones. at 2342 Reported and signed by: Juanito Wilson MD Electronically Signed: Juanito Wilson MD at 23:41 EST Tel , Service support ,
[2021-03-20 07:18] LABS: Absolute Lymphocyte Count 1.56 X10^3/uL (0.83-4.51); Basophil# 0.04 X10^3/uL; Basophil% 0.3 % (0-1); Eosinophils% 0.9 % (0-5); Hematocrit 47.1 % (40-54); Hemoglobin 16.3 g/dL (13.0-16.5); Lymphocyte # 1.56 X10^3/ul (0.83-4.51); Lymphocyte % 13.5 % (19-41); Mean Corp Hgb Conc 34.6 g/dL (32-36); Mean Corpuscular Hgb 30.5 pg (27.0-32.0); Mean Corpuscular Volume 88.2 fL (80-94); Mean Platelet Vol. 10.6 fl (6.2-12.0); Monocyte# 0.85 X10^3/uL; Monocyte% 7.3 % (0-10); NRBC Flagged by Analyzer 0 % (0-5); Neutrophil # 8.98 X10^3/uL (2.7-7.7); Neutrophil % 77.7 % (47-70); Platelet Count 225 K/mm3 (150-450); RBC Distribution Width CV 12.9 % (11.6-14.6); RBC Distribution Width SD 41.6 fl (35.1-43.9); Red Blood Count 5.34 M/mm3 (4.6-6.2); White Blood Count 11.6 K/mm3 (4.4-11.0)
[2021-03-20 07:38] LABS: ALB/GLOB Ratio 0.9 RATIO (0.9-2.4); AST(SGOT) 16 U/L (15-37); Alanine Aminotransfer ALT/SGPT 16 U/L (16-61); Albumin, Serum 3.5 g/dL (3.2-5.0); Alkaline Phosphatase 119 U/L (45-117); Anion Gap 7 (5-15); BUN 16 mg/dL (7-18); BUN/Creat Ratio 14.3 RATIO (10-20); Calcium,Total 9.1 mg/dL (8.5-10.1); Chloride 106 mmol/L (98-107); Creatinine, Serum 1.12 mg/dL (0.70-1.30); EST Glomerular Filtration Rate 70 mL/min (>60); Est Glom Filt Rate - Afr Amer 85 mL/min (>60); Estimated Creatinine Clearance 56.58 ml/min; Globulin 3.9 g/dL (2.2-4.2); Glucose 98 mg/dL (74-106); Lipase 121 U/L (73-393); Phosphorus 3.3 mg/dL (2.5-4.9); Protein, Total 7.4 g/dL (6.4-8.2); Sodium Level 141 mmol/L (136-145)
--- NOTE | 2021-03-20 15:02 | PCM.DC ---
Discharge Instructions Diet Discharge Diet: No restrictions (bland diet, advance as tolerated. No alcohol. ) Activity Discharge Activity: Return to Normal Activity Dressing / Incision Call your doctor if you observe: - (worsening abdominal pain) Follow Up Care Test Results: Test results from this visit will be discussed in further detail at your follow-up appointment, if applicable. Discharge Plan Admission Admit Date/Time: 03/19/21 23:53 Primary Reason for Your Visit: pancreatitis Attending Provider: Mulugeta Mcwilliams Primary Care Provider: Beena Killian Discharge Orders/Prescriptions Prescriptions: New pantoprazole [Protonix] 40 mg tablet,delayed release (DR/EC) 40 mg PO DAILY Qty: 30 RF: 0 Referrals / Follow Up: Beena Killian MD [Primary Care Provider] - Within 2 Weeks FriendGabriel DO [STAFF PHYSICIAN] - Within 1 Month Disposition Disposition (needs filled in before D/C Order can be placed): Home, Self Care
--- NOTE | 2021-03-20 15:07 | DS.PCM_ITS ---
Providers Date of Admission: 03/19/21 Primary Care Physician: Dr. Beena Killian MD Reason For Visit: ACUTE ON RECURRENT PANCRATITIS Diagnosis Discharge Diagnosis (1) Acute pancreatitis: Status: Acute Code(s): K85.90 - Acute pancreatitis without necrosis or infection, unspecified Medications at Discharge Home Medications pantoprazole [Protonix] 40 mg PO DAILY #30 tab 03/20/21 Hospital Course Operations None Procedures None Summary of Care Provided Minutes Spent on Discharge: 32 Hospital Course: Is a 60-year-old male presents with abdominal pain. Patient had a CAT scan that showed inflammatory stranding around the pancreatic head and duodenum with mild duodenal wall thickening compatible with pancreatic head pancreatitis or duodenitis. Patient's lipase was normal. His exam is more consistent with acute pancreatitis as he did improve. Patient states that he has had a history of pancreatitis about 2 years ago and was told that he likely had chronic pancreatitis given his normal pancreatic labs at that time. Patient used to be a heavy drinker and did note that he has had history of transient abdominal pain that did resolve spontaneously without ever seeking attention. It is my concern this patient has likely chronic pancreatitis due to his history of extensive alcohol abuse. Patient states that he no longer abuses alcohol but does have some alcohol occasionally. Though is unclear if this is alcohol induced pancreatitis patient was advised to stop drinking alcohol altogether. Advised patient follow-up with gastroenterology for further evaluation of his pancreatitis. CAT scan showed duodenitis as well. With that, I will have the patient on PPI. Patient to follow-up with gastroenterology for evaluation to see if he be candidate for endoscopy. Physical Exam Resp normal respiratory effort, no retractions, no use of accessory muscles and clear to auscultation bilaterally Cardio regular rate, regular rhythm, S1 normal heart sound and S2 normal heart sound GI normal to inspection, nondistended, normoactive bowel sounds, soft to palpation, non-tender and non-distended Extremity normal to inspection Weight / BMI Weight Weight: 58.5 kg Body Mass Index (BMI) 17.4 ABG / Lab / Microbiology Data Result Diagrams: 03/20/21 05:22 03/20/21 05:22 Laboratory: Laboratory Results - last 24 hr 03/19/21 20:20: Total Bilirubin 0.50, Direct Bilirubin 0.15, AST 15, ALT 19, Alkaline Phosphatase 125 H, Total Protein 8.2, Albumin 3.9, Globulin 4.3 H 03/19/21 20:20: Sodium 140, Potassium 3.9, Chloride 103, Carbon Dioxide 31.0, Anion Gap 6, BUN 17, Creatinine 1.25, Estim Creat Clear Calc 67.25, Est GFR (MDRD) Af Amer 75, Est GFR (MDRD) Non-Af 62, BUN/Creatinine Ratio 13.6, Glucose 107 H, Calcium 10.1, Total Bilirubin 0.60, AST 15, ALT 19, Alkaline Phosphatase 124 H, Total Protein 8.2, Albumin 3.9, Globulin 4.3 H, Albumin/Globulin Ratio 0.9 03/19/21 20:20: Lipase 199 03/19/21 20:20: WBC 8.9, RBC 5.64, Hgb 17.1 H, Hct 48.8, MCV 86.5, MCH 30.3, MCHC 35.0, RDW Std Deviation 40.2, RDW Coeff of Marquita 12.7, Plt Count 229, MPV 10.4, Immature Gran % (Auto) 0.400, Neut % (Auto) 77.7 H, Lymph % (Auto) 15.1 L, [place] % (Auto) 5.5, Eos % (Auto) 1.0, Baso % (Auto) 0.3, Absolute Neuts (auto) 6.9, Absolute Lymphs (auto) 1.34, Nucleated RBC % 0 03/19/21 20:20: Magnesium 2.5 03/19/21 21:25: Urine Color Yellow, Urine Clarity Sl. Cloudy, Urine pH 8.0, Ur Specific [place] 1.010, Urine Protein Negative, Urine Glucose (UA) Normal, Urine Ketones Negative, Urine Occult Blood Negative, Urine Nitrite Negative, Urine Bilirubin Negative, Urine Urobilinogen Normal, Ur Leukocyte Esterase Negative, Urine RBC 0 SEEN, Urine WBC 0 SEEN, Ur Squamous Epith Cells 0 SEEN, Amorphous Sediment 1+, Urine Bacteria RARE, Urine Mucus 0 SEEN 03/20/21 05:22: WBC 11.6 H, RBC 5.34, Hgb 16.3, Hct 47.1, MCV 88.2, MCH 30.5, MCHC 34.6, RDW Std Deviation 41.6, RDW Coeff of Marquita 12.9, Plt Count 225, MPV 10.6, Immature Gran % (Auto) 0.300, Neut % (Auto) 77.7 H, Lymph % (Auto) 13.5 L, [place] % (Auto) 7.3, Eos % (Auto) 0.9, Baso % (Auto) 0.3, Absolute Neuts (auto) 9.0 H, Absolute Lymphs (auto) 1.56, Nucleated RBC % 0 03/20/21 05:22: Sodium 141, Potassium 4.0, Chloride 106, Carbon Dioxide 28.0, Anion Gap 7, BUN 16, Creatinine 1.12, Estim Creat Clear Calc 56.58, Est GFR (MDRD) Af Amer 85, Est GFR (MDRD) Non-Af 70, BUN/Creatinine Ratio 14.3, Glucose 98, Calcium 9.1, Phosphorus 3.3, Total Bilirubin 0.70, AST 16, ALT 16, Alkaline Phosphatase 119 H, Total Protein 7.4, Albumin 3.5, Globulin 3.9, Albumin/Globulin Ratio 0.9, Lipase 121 Microbiology: Microbiology 03/20/21 00:40 Nasal Secretion SARS-CoV-2 Antigen (Rapid) - Final Radiography Diagnostic Testing: Radiology Impression Abdomen/Pelvis CT 03/19/21 21:12 IMPRESSION: Inflammatory stranding about the pancreatic head and duodenum with mild duodenal wall thickening compatible with pancreatic head pancreatitis or duodenitis. Correlate with pancreatic labs. Diverticulum distal to the area of duodenal inflammation at the pancreatic head without evidence of diverticulitis. Individualized dose optimization techniques were used for this CT. at 2313 Reported and signed by: Arvind Ladd MD Electronically Signed: Arvind Ladd MD at 23:12 EST Tel , Service support , D/C Instructions Discharge Diet: No restrictions (bland diet, advance as tolerated. No alcohol. ) Call your doctor if you observe: - (worsening abdominal pain) Meaningful Use Info Meaningful Use Diagnoses (Choose all that apply): None applicable Discharge Plan Admission Admit Date/Time: 03/19/21 23:53 Primary Reason for Your Visit: pancreatitis Attending Provider: Mulugeta Mcwilliams Primary Care Provider: Beena Killian Discharge Orders/Prescriptions Prescriptions: New pantoprazole [Protonix] 40 mg tablet,delayed release (DR/EC) 40 mg PO DAILY Qty: 30 RF: 0 Referrals / Follow Up: Beena Killian MD [Primary Care Provider] - Within 2 Weeks FriendGabriel DO [STAFF PHYSICIAN] - Within 1 Month Disposition Disposition (needs filled in before D/C Order can be placed): Home, Self Care Charges/Coding Visit Charges Inpatient E&M: 63475 Disch Hosp
--- NOTE | 2021-03-20 16:20 | CASEMGMT ---
KULDIP ADAIR CLERICAL CAR CHECKER MANA to room to meet with patient for initial transition planning/care coordination assessment. KULDIP ADAIR introduced self and role at [facility]. Pt voices understanding and consents to assessment at this time. Pt resting in bed in no distress at this time. Pt is A/O at this time and answers all questions appropriately. Care providers, pharmacy, and demographics verified/updated at this time. PCP: Dr Killian, although pt states has not seen her in about 3 yrs. KULDIP ADAIR advised pt to f/u w/PCP @ discharge. Specialists: Pt states he f/u w/2 different cardiologists @ [facility] since his CABG in September, but he does not remember their names. He states he went to all of the appts except for one. He thinks he has a f/u appt with one of them, but is not sure when it is. He states he will receive a notification when it is getting close to the appt date. [facility] Insurance: [employer] Prescription Benefit: Yes Living Will/HPOA: Pt does not currently have LW/HCPOA and declines info at this time. Pt made aware that he can contact [facility] as an out-pt and make appt in the future if he decides he would like to talk with someone about this or would like to utilize [facility] social work for advanced directive completion. Given Driver Trainer [employer] card with information and contact number. Pt expresses understanding. LNOK: Has a son, Connor Gallardo. Pt is aware son is not listed on demographics. States wishes GF, Chana Reardon and friend, Manoj, is also listed on contacts. Living Arrangements: Lives w/GFChana, in 2-story home. Denies difficulty w/stairs. Independent w/ADL's. Pt/GF share home tasks. Transportation: Pt states drives self and states no transportation concerns at this time. Chana also drives. Friend will take him home @ d/c DME: Denies using any DME and denies needs. HHC/SNF: No history of either. No needs identified. Pt wishes to return home and states has no concerns with going home at time of discharge. CM to follow for any discharge planning/needs. Pt voices no concerns/needs at this time. Advised pt to ask for CM if any concerns/needs arise. Voices understanding. PLAN: Home Minor OSULLIVAN RN, CM
== END 2021-03-20 17:06 | disposition home or self-care (01) | DRG 282 ==
LOC: ED 23:58 → PCU 03-20 07:00
PROVIDERS: Student in an Organized Health Care Education/Training Program; Admitting Provider Internal Medicine; Emergency Provider Emergency Medicine; PCP Internal Medicine
DX: K85.90 Acute pancreatitis without necrosis or infection, unspecified (principal); I11.0 Hypertensive heart disease with heart failure; I50.22 Chronic systolic (congestive) heart failure; F10.21 Alcohol dependence, in remission; K86.1 Other chronic pancreatitis; I25.10 Atherosclerotic heart disease of native coronary artery without angina pectoris; I25.2 Old myocardial infarction; K21.9 Gastro-esophageal reflux disease without esophagitis; Z66 Do not resuscitate; K29.80 Duodenitis without bleeding; Z82.49 Family history of ischemic heart disease and other diseases of the circulatory system; Y90.9 Presence of alcohol in blood, level not specified; Z95.1 Presence of aortocoronary bypass graft
CPT/HCPCS: 80076; 36415; 74177; 76705; 80053; 81001; 83690; 83735; 84100; 85025; 87426; 96361; 96365; 96372; 96375; 96376; 97802; 99218; 99284; J7120; Q9967; G0378; J2405

== ENCOUNTER 2021-07-09 10:29 | Emergency (ER) | payer MEDICAID, SELFPAY ==
[2021-07-09 10:31] VITALS: BP 150/73; PULSE 77; RESP 17; TEMP 36.1; O2SAT 99; BMI 26.0
--- NOTE | 2021-07-09 11:36 | EX.ED.VIS.EY ---
HPI <JASON Cai - Last Filed: 07/09/21 11:49> History of Present Illness Chief Complaint: Eye Problem Narrative Narrative: Patient is a 61-year-old male with history of hypertension, presents to the emergency department with 2 weeks of right eye pain. Patient states that the eye was hurting intermittently however the last 48 hours he has been unable to open it, has consistent tearing. Patient states he does believe he has a foreign body in his eye, however he is unable to get it out. Patient denies any fevers chills nausea vomiting. Patient denies any pain with moving the eye. Patient states the pain is worse with light as well as blinking. PFSH <JASON Cai - Last Filed: 07/09/21 11:49> PFSH Medical History Hypertension Pancreatitis Home Medications pantoprazole [Protonix] 40 mg PO DAILY #30 tab 03/20/21 [Rx Last Taken Unknown] ketorolac 1 drp RIGHT EYE Q6H PRN #3 ml 07/09/21 [Rx Last Taken Unknown] moxifloxacin [Vigamox] 1 drp RIGHT EYE TID 7 Days #3 ml 07/09/21 [Rx Last Taken Unknown] Allergy/AdvReac Type Severity Reaction Status Date / Time Penicillins Allergy Other Verified 07/09/21 10:30 Family History Other CAD (coronary artery disease) Cancer Surgical History History of carpal tunnel surgery History of open heart surgery Social History Smoking Status: Never smoker details: Drinks occasionally. ROS <JASON Cai - Last Filed: 07/09/21 11:49> ROS ED ROS Narrative Constitutional: Negative for fever, chills, weight loss or gain, weakness Eyes: Negative for vision loss, vision change, double vision. Positive for right eye tearing, unable to open eye, photophobia. Patient believes there is a foreign body in the right ENT: Negative for any hearing changes, ringing in the ears, dizziness, discharge, pain Nose: Negative for any congestion, runny nose, sinus pain, allergies Throat: Negative for any sore throat hoarseness, voice changes, Cardiovascular: Negative for any chest pain, tightness, palpitations, racing heartbeat Respiratory: Negative for any coughs, sputum production, coughing, hemoptysis, shortness of breath, shortness of breath on exertion, Gastrointestinal: Negative for any abdominal pain, nausea, vomiting, diarrhea, constipation, blood in stool, blood in vomit : Negative for any urinary frequency, incontinence, dysuria, retention, blood in urine Muscle skeletal: Negative for any muscle joint pain, stiffness, myalgias, arthralgias, neck pain, back pain Neurological: Negative for any headache, head injury, dizziness, syncope, numbness or tingling Skin: Negative for any rashes, lumps, itching, abrasions, lacerations Psychiatric: Negative for any depression, anxiety, stress, suicidal ideation, homicidal ideation Hematologic: Negative for any easy bruising, excessive bruising, easy bleeding Allergies: Negative for any eczema, hives, rash EXAM <JASON Cai - Last Filed: 07/09/21 11:49> Physical Exam Const Vital Signs: 07/09/21 10:31 Temperature 97.0 F L Temperature Source Oral Pulse Rate 77 Respiratory Rate 17 Blood Pressure 150/73 H Blood Pressure Mean 98 Pulse Ox 99 Oxygen Delivery Method Room Air Positive well nourished and well developed General Appearance ED: well developed HEENT trauma Eyes Eyes Narrative: Patient's pupil equal round reactive light. Patient is unable to open the right eye long enough and due to the extensive tearing, he was unable to perform the visual acuity. On physical examination, the patient does have a small foreign body to the 3:00 origin. It appears black in nature as a small pebble. Patient has no foreign body in the upper or lower lid. Patient does have redness, fluorescein staining was completed, this did show a large corneal abrasion, small divot in the patient's eye at the area of the foreign body. Patient was given tetracaine for comfort. Neck no lymphadenopathy and supple Resp normal respiratory effort and clear to auscultation bilaterally Cardio regular rate and regular rhythm GI non-tender and non-distended Palpation: soft Back/Spine no CVA tenderness Extremity normal to inspection Neuro oriented x3 Sensorium / Orientation: alert Skin Rashes: no rashes [facility] <JASON Cai - Last Filed: 07/09/21 11:49> [facility] Narrative Medical decision making narrative: Patient appears well, patient appears nontoxic, vital signs are stable. Patient presents the emerge department a foreign body to the right eye. Upon physical examination there was a foreign body embedded into the cornea around 3 region. I was able to use a 25-gauge needle and get the foreign body out. Tetracaine was used, patient's fluorescein staining shows corneal abrasion at the site of the foreign body. Patient be given erythromycin ointment here, patient placed on Vigamox as well as ketorolac drops. Patient will follow up with Dr. Pena at [facility]. Patient given strict return precautions return for any worsening symptoms. Patient also told the importance of following up and to ensure treatment is working. Patient stable for discharge. Lab Data Attestation: I reviewed the patient's lab results. <Dr. Harjinder Villasenor, - Last Filed: 07/09/21 12:04> [facility] Narrative Medical decision making narrative: Patient seen and evaluated in conjunction with the physician clinical lab assistant. Agree with assessment and plan. Patient presented with foreign body sensation. After evaluation there was a small foreign body as noted. This was able to be removed by the physician clinical lab assistant without sequela. Small defect noted after procedure. Patient will be given initial dose of erythromycin ophthalmic in the emergency room and be given prescription for Vigamox and Toradol eyedrops for home. He is to follow-up with ophthalmology and is given referral. Discharge Plan Triage Chief Complaint: Eye Problem ED Midlevel Provider: Juvenal Jay ED Provider: Harjinder Villasenor Dx/Rx/DC Orders Clinical Impression: Foreign body, eye, Abrasion, corneal Instructions: Corneal Injury Prescriptions: New ketorolac 0.5 % drops 1 drp RIGHT EYE Q6H PRN (Reason: itching) Qty: 3 RF: 0 moxifloxacin [Vigamox] 0.5 % drops 1 drp RIGHT EYE TID 7 Days Qty: 3 RF: 0 No Action pantoprazole [Protonix] 40 mg tablet,delayed release (DR/EC) 40 mg PO DAILY Qty: 30 RF: 0 Stand Alone Forms: ED Work / School Excuse Primary Care Provider: Beena Killian Referrals: Beena Killian MD [Primary Care Provider] - Heron Pena MD [STAFF PHYSICIAN] - 2 Days (To follow-up with ophthalmology to ensure proper healing) Print Language: Swiss Disposition Disposition: Home, Self Care
[2021-07-09] MEDS: Fluorescein 1 MG STRIP 1 STRIP OPHTHALMIC (12:27)
[2021-07-09] MEDS: Erythromycin Base 1 OPTH.TUBE 1 APPLIC OPHTHALMIC (12:28)
[2021-07-09] MEDS: Tetracaine 0.5% Ophthalmic Bottle OPHTHALMIC (12:28)
== END 2021-07-09 12:29 | disposition home or self-care (01) ==
LOC: ED 11:53
PROVIDERS: Emergency Provider Student in an Organized Health Care Education/Training Program; PCP Internal Medicine; Visit Provider Student in an Organized Health Care Education/Training Program
DX: S05.01XA Injury of conjunctiva and corneal abrasion without foreign body, right eye, initial encounter (principal); T15.01XA Foreign body in cornea, right eye, initial encounter; I10 Essential (primary) hypertension
CPT/HCPCS: 65220; 10120; 99282

== ENCOUNTER 2022-01-28 10:39 | Emergency (ER) | payer MEDICAID, SELFPAY ==
[2022-01-28 10:40] VITALS: BP 185/86; PULSE 67; RESP 18; TEMP 36.1; O2SAT 97; BMI 26.4
--- NOTE | 2022-01-28 11:02 | ED.RN ---
pt pain improved while in ed. pt declined any intervention. states i forgot to take my med last night. i think i just need to go home and take it. dr angela aware and okay to discharge.
--- NOTE | 2022-01-28 11:24 | EDS_ITS ---
HPI HPI - GI History of Present Illness Chief Complaint: Abd Pain Informant: patient Abdominal Pain/Flank Pain Onset: Today Context: Gradual Onset Timing: Intermittent Quality: Burning Location: Epigastric and LUQ Current Severity: Gone Worsened by: Nothing Relieved by: Nothing Nausea/Vomiting/Emesis GI Symptom: Negative for Nausea or Vomiting Diarrhea/Melena/Hematochezia GI Symptom: Negative for Diarrhea, Melena or Hematochezia Associated Symptoms Associated Symptoms: Negative for Dysuria, Frequency or Hematuria Narrative Narrative: Patient presents with abdominal pain that began today. Patient states the pain is over the epigastric and left upper quadrant area. Patient states that it got worse today while he was at work and his boss made him come to the emergency department. Patient states is starting to feel better now. Patient states it is actually resolved. Patient describes the pain as burning. Patient denies any nausea or vomiting. Patient denies any diarrhea, melena, or hematochezia. Patient denies any dysuria or hematuria. Patient states he forgot to take his pancreatitis medications yesterday and today. Patient states he just feels like he needs to go home and take his medications. PFSH PFS Medical History Hypertension Pancreatitis Home Medications pantoprazole 40 mg tablet,delayed release (Protonix) 40 mg PO DAILY #30 tabs 03/20/21 [Rx Last Taken Unknown] ketorolac 0.5 % eye drops 1 drp RIGHT EYE Q6H PRN itching #3 mL 07/09/21 [Rx Last Taken Unknown] moxifloxacin 0.5 % eye drops (Vigamox) 1 drp RIGHT EYE TID 7 days #3 mL 07/09/21 [Rx Last Taken Unknown] Allergy/AdvReac Type Severity Reaction Status Date / Time Penicillins Allergy Other Verified 01/28/22 10:57 Family History Other CAD (coronary artery disease) Cancer Surgical History History of carpal tunnel surgery History of open heart surgery Social History Smoking Status: Never smoker details: Drinks occasionally. ROS ROS ED Constitutional Constitutional ED: Denies chills or fever(s) Eyes Eyes: Denies blurry vision or change in vision ENT ENT ED: Denies rhinorrhea or sore throat Cardiovascular Cardiovascular: Denies chest pain or palpitations Respiratory/Chest Respiratory/Chest: Denies cough or dyspnea Gastrointestinal Gastrointestinal: Reports abdominal pain; Denies nausea or vomiting Genitourinary Genitourinary ED: Denies dysuria or hematuria Musculoskeletal Musculoskeletal: Denies back pain or neck pain Integumentary Denies abscess or rash Neurologic Neurologic: Denies headache(s) or weakness Allergic/Immunologic Allergic/Immunologic ED: Denies mouth swelling or urticaria EXAM Physical Exam Const Vital Signs: 01/28/22 10:40 Temperature 97 F L Temperature Source Temporal Pulse Rate 67 Respiratory Rate 18 Blood Pressure 185/86 H Blood Pressure Mean 119 Pulse Ox 97 Oxygen Delivery Method Room Air Positive well nourished and well developed General Appearance ED: well developed HEENT Reports moist mucous membranes Neck supple and no JVD Resp normal respiratory effort and clear to auscultation bilaterally Cardio regular rate, regular rhythm and no murmurs GI normal to inspection, nondistended, normoactive bowel sounds Palpation: soft and tender LUQ (Mild); Negative for guarding or rebound tenderness present Extremity normal to inspection General Extremety ED: Negative for edema or tenderness General Extremity: Negative for edema Neuro oriented x3, CN's II-XII intact bilaterally and no sensory deficits noted Sensorium / Orientation: alert Motor Exam: strength 5/5 throughout Psych mental status grossly normal Skin no rashes or lesions noted MDM MDM MDM Narrative Medical decision making narrative: Patient does not want any lab work drawn. Patient states he just wants to go home and take his pancreatitis medications. Patient was instructed return if worse in any way. Patient was instructed to follow-up with his primary care p hysician in 5 to 7 days. Patient understands and is agreeable with the plan. All questions were answered. Discharge Plan Triage Chief Complaint: Abd Pain ED Provider: Mulugeta Pinzon Dx/Rx/DC Orders Clinical Impression: Abdominal pain in male, History of pancreatitis Instructions: ED Pancreatitis, ED Abdominal Pain Unkn Cause Male... Prescriptions: No Action pantoprazole [Protonix] 40 mg tablet,delayed release (DR/EC) 40 mg PO DAILY Qty: 30 0RF ketorolac 0.5 % drops 1 drp RIGHT EYE Q6H PRN (Reason: itching) Qty: 3 0RF moxifloxacin [Vigamox] 0.5 % drops 1 drp RIGHT EYE TID 7 Days Qty: 3 0RF Primary Care Provider: Beena Killian Referrals: Beena Killian MD [Primary Care Provider] - 3-5 Days Disposition Disposition: Home, Self Care
== END 2022-01-28 11:38 | disposition home or self-care (01) ==
PROVIDERS: Emergency Provider Emergency Medicine; PCP Internal Medicine; Visit Provider Emergency Medicine
DX: R10.9 Unspecified abdominal pain (principal); I10 Essential (primary) hypertension
CPT/HCPCS: 99282

== ENCOUNTER 2023-01-14 21:49 | Emergency (ER) | payer MEDICAID, SELFPAY ==
[2023-01-14 21:50] VITALS: BP 172/103; PULSE 76; RESP 18; TEMP 36.6; O2SAT 98; BMI 26.5
[2023-01-14 22:13] VITALS: O2SAT 95
--- NOTE | 2023-01-14 22:14 | CT_ITS ---
INDICATION: Trauma with loss of consciousness and headache EXAMINATION: CT BRAIN - CT Head or Brain W/O Contrast Injection TECHNIQUE: Multiple axial images were obtained of the head without intravenous contrast. A radiation dose optimization technique was used for this scan. IV Contrast dosage and agent: None. COMPARISON: FINDINGS: BRAIN PARENCHYMA: No intra- or extra-axial hemorrhage. No evidence of acute infarct. No intracranial mass or mass effect. There is preservation of the deng/white matter interface. Posterior fossa structures are unremarkable. CSF SPACES: Appropriate for age. No hydrocephalus. Basal cisterns are patent. CALVARIUM, SKULL BASE, PARANASAL SINUSES AND MASTOID AIR CELLS: Clear. No discrete lytic or blastic abnormalities. ORBITS: Both globes, extraocular muscles, optic nerves and retrobulbar fat appear unremarkable. Soft tissue laceration near the left orbit as well as preseptal soft tissue swelling. No retrobulbar hemorrhage. The patient does have some soft tissue debris bilaterally as well as at the nose image [address]/Brain/Head without Contrast IMPRESSION: Left frontal soft tissue laceration and some soft tissue debris. No acute intracranial hemorrhage or fracture. Electronically Signed: Best Banks MD at 22:37 EDT ,
--- NOTE | 2023-01-14 23:11 | ED.VIS.FALL ---
HPI HPI - Fall History of Present Illness Chief Complaint: Fall Detail of Chief Complaint: Echo fall with laceration above left brow and inferior lower eyelashes Informant: patient Occured/Mechanism Occurred: Today and Hours Mechanism/Context: Yes trip Narrative: Was walking. There is a step-off of the foot. He misjudged the step off and fell striking his face against the asphalt. Fall from Height (ft): Foot drop Usually ambulates: Without assistance Pain/Injury Location: The left brow, inferior to the left orbit Pain Location: head (Does complain of headache.) Quality of Pain: Dull Current Severity: Mild Maximum Severity: Moderate Worsened by: Nothing Relieved by: Nothing Associated Symptoms Associated Symptoms: Positive for Loss of consciousness (Several minutes per bystanders); Negative for Parasthesias, Weakness, Loss of function or Inability to ambulate Narrative Narrative: Is a 62-year-old male who has not been compliant with his medications. One of his medications is anticoagulant. He also has history of hypertension. His last tetanus is unknown. He denies double vision, blurred vision loss of vision. [place] ringing's ears or decreased hearing. Denies trauma to his teeth. Denies that his bite is off. He denies neck pain. He denies paresthesia, anesthesia or motor weakness presently at time of the fall. He denies chest pain or shortness of breath. He denies nausea or vomiting. He denies injuries to his extremities. He states he was working on his significant other's car. He was walking when he misjudged the step off. Tetanus Immunization: Unknown Prior similar symptoms: No Recent Illness/Hospitalization: No PFSH PFSH Medical History Hypertension Pancreatitis Home Medications pantoprazole 40 mg tablet,delayed release (Protonix) 40 mg PO DAILY #30 tabs 03/20/21 [Rx Last Taken Unknown] ketorolac 0.5 % eye drops 1 drp RIGHT EYE Q6H PRN itching #3 mL 07/09/21 [Rx Last Taken Unknown] moxifloxacin 0.5 % eye drops (Vigamox) 1 drp RIGHT EYE TID 7 days #3 mL 07/09/21 [Rx Last Taken Unknown] hydrochlorothiazide 12.5 mg tablet 12.5 mg PO DAILY #30 tabs 01/15/23 [Rx Last Taken Unknown] Allergy/AdvReac Type Severity Reaction Status Date / Time Penicillins Allergy Other Verified 01/14/23 23:09 Family History Other CAD (coronary artery disease) Cancer Surgical History History of carpal tunnel surgery History of open heart surgery Social History Smoking Status: Never smoker details: Drinks occasionally. ROS ROS ED Constitutional Constitutional ED: Denies chills, fever(s) or subjective Eyes Eyes: Denies blurry vision, change in vision or diplopia ENT ENT ED: Reports other Details: Decreased hearing or ringing's ears. ; Denies ear pain, rhinorrhea or sore throat Cardiovascular Cardiovascular: Denies chest pain or palpitations Respiratory/Chest Respiratory/Chest: Denies dyspnea or dyspnea on exertion Gastrointestinal Gastrointestinal: Denies nausea or vomiting Musculoskeletal Musculoskeletal: Denies arthralgias, back pain, myalgias or neck pain Integumentary Reports other Details: Facial lacerations which are flap-like. Neurologic Neurologic: Reports headache(s); Denies paresthesias or weakness Psychiatric Psychiatric: Denies anxiety Hematologic/Lymphatic Hematologic/Lymphatic: Denies easy bleeding or easy bruising EXAM Physical Exam Const Vital Signs: 01/14/23 21:50 01/14/23 22:13 Temperature 97.8 F Temperature Source Temporal Pulse Rate 76 Respiratory Rate 18 Respiratory Effort Normal Blood Pressure 172/103 H Blood Pressure Mean 126 Pulse Ox 98 95 Oxygen Delivery Method Room Air Room Air Positive well nourished and well developed General Appearance ED: well developed and NAD HEENT Reports normocephalic and TM's normal bilaterally HEENT Narrative: 's are normal. External auditory canals normal. There is no septal deviation hematoma. There is no dental trauma. There is no trismus. There is a flap-like laceration above the left eyebrow and there is a flap type laceration lateral inferior left orbit. There is no clinical signs of basilar skull fracture Eyes PERRL and EOMs intact bilaterally Eyes Narrative: No subconjunctival hemorrhage. There is no nystagmus. General Eye ED: Negative for pale conjunctiva Neck full ROM, no lymphadenopathy and supple Neck Narrative: Pain palpation and he has full range motion. Resp normal respiratory effort and no retractions Cardio regular rate, regular rhythm, S1 normal heart sound, S2 normal heart sound and no murmurs GI non-tender, non-distended and no masses Palpation: soft Back/Spine no CVA tenderness Neuro oriented x3, CN's II-XII intact bilaterally, moves all extremities, no focal motor deficits and no sensory deficits noted Neuro Narrative: No dysmetria. No clonus at the ankles and the Babinski test is negative bilateral. Ledbetter Coma Scale: document GCS findings Spontaneous Obeys Commands Oriented 15 Sensorium / Orientation: alert Motor Exam: strength 5/5 throughout Psych mental status grossly normal and thought process normal Skin Skin Narrative: Lacerations as previously mentioned. MDM MDM MDM Narrative Medical decision making narrative: Patient had document loss of conscious complaining of headache will obtain CT of the head. The [place] rule to rule out intracranial bleed. His wounds will need repaired. Of note there is debris noted in the wounds and these debris was noted on the CAT scan as well. Radiography Diagnostic Testing: Clinical Impression(s) from Imaging Studies Brain CT 01/14/23 22:14 IMPRESSION: Left frontal soft tissue laceration and some soft tissue debris. No acute intracranial hemorrhage or fracture. Electronically Signed: Best Banks MD at 22:37 EDT , Rhythm Strip Rhythm Strip: Sinus Rhythm Rate: 77 Ectopy: None Procedures Other Procedures Procedure(s): Patient's laceration above the eyebrow is a flap laceration and is to by 2-1/2 cm. 20 pieces of cinder was removed. 2 of the pieces had to be removed by excising tissue because they were embedded in the flap. There was a small defect noted medially. The wound was anesthetized by local infiltration with 1% lidocaine. The wound was cleansed with surgical and and irrigated with normal saline. 9 stitches were placed using 6-0 Ethilon. The lower flap laceration was 1.5 x 2 cm. There was foreign body noted as well. 2 pieces of sender were removed. This was superficial. Wound was cleansed with surgical lens and irrigated with normal saline. Using 6-0 Ethilon 5 stitches was placed. There was slight difficulty because patient had to be reanesthetized twice because he had obvious discomfort. Discharge Plan Triage Chief Complaint: Fall ED Provider: Won Silva Dx/Rx/DC Orders Clinical Impression: Injury due to fall, Foreign body (FB) in soft tissue, Concussion with loss of consciousness <= 30 min, Facial laceration, Hypertension Instructions: ED Concussion, ED Hypertension New Begin Treatment, ED Laceration: All Closures, ED Laceration Minimize Scars Prescriptions: New hydrochlorothiazide 12.5 mg tablet 12.5 mg PO DAILY Qty: 30 0RF No Action pantoprazole [Protonix] 40 mg tablet,delayed release (DR/EC) 40 mg PO DAILY Qty: 30 0RF ketorolac 0.5 % drops 1 drp RIGHT EYE Q6H PRN (Reason: itching) Qty: 3 0RF moxifloxacin [Vigamox] 0.5 % drops 1 drp RIGHT EYE TID 7 Days Qty: 3 0RF Primary Care Provider: Beena Killian Referrals: Beena Killian MD [Primary Care Provider] - 5 Days for suture removal Activity Restrictions/Additional Instructions: 1. Keep wound clean and dry 2. Apply bacitracin 3 times a day 3. Start blood pressure medication in the morning. You may have increased urination the first week or 2. Disposition Disposition: Home, Self Care
[2023-01-14] MEDS: Diphth,Pertuss(Acell),Tet Vac 0.5 ML Vial IM (23:12)
[2023-01-15] MEDS: Lidocaine 1% (20 ml mdv) 20 ML Vial INFILT (00:19)
[2023-01-15 00:44] VITALS: BP 154/90; PULSE 67; RESP 18; O2SAT 97
== END 2023-01-15 00:45 | disposition home or self-care (01) ==
PROVIDERS: Emergency Provider Emergency Medicine; PCP Internal Medicine; Visit Provider Emergency Medicine
DX: S01.122A Laceration with foreign body of left eyelid and periocular area, initial encounter (principal); Y99.0 Civilian activity done for income or pay; I10 Essential (primary) hypertension; W10.9XXA Fall (on) (from) unspecified stairs and steps, initial encounter; M60.20 Foreign body granuloma of soft tissue, not elsewhere classified, unspecified site; S06.0X1A Concussion with loss of consciousness of 30 minutes or less, initial encounter
CPT/HCPCS: 12013; 70450; 90471; 90715; 99283

== ENCOUNTER 2024-04-30 10:04 | Inpatient (IN) | payer MEDICARE, SELFPAY ==
[2024-04-30] VITALS (8 sets, daily range): BP systolic 131–177; BP diastolic 84–117; PULSE 50–80; RESP 16–32; TEMP 36.7–36.9; O2SAT 95–100; BMI 27.3
--- NOTE | 2024-04-30 11:06 | ED.VIS.CHEST ---
HPI History of Present Illness Chief Complaint: Chest Pain Informant: patient Onset/Context/Timing Onset: Yesterday Activity at onset: gradual Timing: Continuous Quality: Positive for Sharp Location: Substernal Worsened By: Nothing Relieved By: Nothing Associated Symptoms: Negative for Nausea, Vomiting, Diaphoresis, Dyspnea, Cough, Fever, Lightheadedness, Acid Reflux or Palpitations Narrative Narrative: Patient presents with chest pain that began yesterday. Patient states it came on gradually. Patient describes the pain as sharp. Patient states it is constant. Patient states that pain is over the substernal area. Patient states nothing makes it worse and nothing makes it better. Patient denies any nausea or vomiting. Patient denies any shortness of breath or cough. Patient denies any diaphoresis. Patient denies any palpitations. Patient states that he has not used any methamphetamines in the past 4 days and is wondering if this is withdrawal symptoms. CVD Risk Factors: Positive for Family History 1' </=55; Negative for Hypertension, Diabetes, Hypercholesterolemia or Smoking PE Risk Factors: Negative for Recent Travel/Surgery, Recent Immobilization, Prior DVT or PE, Cancer or OCP + Smoking + >/=35 PFSH PFS Medical History Pancreatitis Hypertension Home Medications ?Medication ?Instructions ?Recorded ?Last Taken ?Type NK 04/30/24 Unknown History Allergy/AdvReac Type Severity Reaction Status Date / Time Penicillins Allergy Other Verified 04/30/24 10:05 Family History Other CAD (coronary artery disease) Cancer Surgical History History of open heart surgery History of carpal tunnel surgery Social History Smoking Status: Unknown if ever smoked details: Drinks occasionally. ROS ROS ED Constitutional Constitutional ED: Denies chills or fever(s) Eyes Eyes: Denies blurry vision or change in vision ENT ENT ED: Denies rhinorrhea or sore throat Cardiovascular Cardiovascular: Reports chest pain; Denies palpitations Respiratory/Chest Respiratory/Chest: Denies cough or dyspnea Gastrointestinal Gastrointestinal: Denies nausea or vomiting Genitourinary Genitourinary ED: Denies dysuria or hematuria Musculoskeletal Musculoskeletal: Reports back pain; Denies neck pain Integumentary Denies abscess or rash Neurologic Neurologic: Denies headache(s) or weakness Allergic/Immunologic Allergic/Immunologic ED: Denies mouth swelling or urticaria EXAM Physical Exam Const Vital Signs: 04/30/24 10:05 04/30/24 11:38 04/30/24 12:04 Temperature 98.1 F Temperature Source Oral Pulse Rate 64 50 L 64 Respiratory Rate 32 H 20 H Blood Pressure 144/85 H 131/117 H 177/87 H Blood Pressure Mean 104 117 Pulse Ox 99 95 Oxygen Delivery Method Room Air Room Air Positive well nourished and well developed General Appearance ED: well developed and NAD HEENT Reports moist mucous membranes Neck supple and no JVD Resp normal respiratory effort and clear to auscultation bilaterally Cardio regular rate and regular rhythm GI soft to palpation, non-tender and non-distended Extremity normal to inspection General Extremety ED: Negative for edema, pulses abnormal or tenderness General Extremity: Negative for edema or pulses abnormal Neuro oriented x3, CN's II-XII intact bilaterally and no sensory deficits noted Sensorium / Orientation: awake and alert Motor Exam: strength 5/5 throughout Psych mental status grossly normal Heart Score History: Slightly/Non-Suspicious ECG: Nonspecific Repolarization Age: >/= 65 years Risk Factors: >/= 3 Risk Factors or History of CAD Score: 5 MDM MDM MDM Narrative Medical decision making narrative: Differential diagnosis includes cardiac dysrhythmia, cardiac ischemia, electrolyte abnormality, pneumonia, pneumothorax, gastroesophageal reflux disease, peptic ulcer disease, pancreatitis, methamphetamine withdrawal, and anxiety. EKG will be obtained to assess for cardiac dysrhythmia and cardiac ischemia. Chest x-ray will be obtained to assess for pneumonia and pneumothorax. CBC will be obtained to assess for leukocytosis and anemia. Comprehensive metabolic profile will be obtained to assess for electrolyte abnormality, renal function, and hepatic function. Lipase will be obtained to assess for pancreatitis. Urinalysis will be obtained to assess for urinary tract infection and hematuria. High-sensitivity troponin will be obtained to assess for cardiac ischemia. 2-hour repeat high-sensitivity troponin will be obtained to assess for ongoing cardiac ischemia. Lab Data Attestation: I reviewed the patient's lab results. Lab results narrative: CBC was reviewed and was within normal limits. Comprehensive metabolic profile was reviewed. Alkaline phosphatase was slightly elevated at 134. The remainder is within normal limits. Lipase was reviewed and was elevated at 745. High-sensitivity troponin was reviewed and was normal at 45. Labs: Laboratory Results - last 24 hr 04/30/24 09:50 WBC 9.6 RBC 5.98 Hgb 17.8 H Hct 53.1 MCV 88.8 MCH 29.8 MCHC 33.5 RDW Std Deviation 41.7 RDW Coeff of Marquita 12.7 Plt Count 196 MPV 10.8 Immature Gran % (Auto) 0.300 Neut % (Auto) 67.9 Lymph % (Auto) 19.6 [place] % (Auto) 9.4 Eos % (Auto) 2.2 Baso % (Auto) 0.6 Absolute Neuts (auto) 6.5 Absolute Lymphs (auto) 1.89 Nucleated RBC % 0 Sodium 138 Potassium 4.1 Chloride 102 Carbon Dioxide 31.0 Anion Gap 5 BUN 15 Creatinine 1.21 Estim Creat Clear Calc 65.91 Est GFR (MDRD) Af Amer 77 Est GFR (MDRD) Non-Af 64 BUN/Creatinine Ratio 12.4 Glucose 94 Calcium 9.7 Total Bilirubin 0.40 AST 19 ALT 26 Alkaline Phosphatase 134 H Troponin I High Sens 45 Total Protein 8.2 Albumin 3.8 Globulin 4.4 H Albumin/Globulin Ratio 0.9 Lipase 745 H Radiography Chest X-Ray - ED: 1 View, Read by ED Physician, Read by Radiologist and No Acute Disease CTA PE Study: No Evidence of PE and No Evidence of Dissection Diagnostic Testing: Clinical Impression(s) from Imaging Studies Chest X-Ray 04/30/24 11:20 IMPRESSION: No acute abnormality is seen. Borderline cardiomegaly. Electronically Signed: Nelson Monzon MD at 12:00 EST , Chest CTA 04/30/24 11:38 IMPRESSION: No evidence of aortic dissection. Coronary artery calcification. Mild degree of the dependent bibasilar atelectasis. Electronically Signed: Nelson Monzon MD at 12:15 EST , Portable 1 view chest x-ray was obtained. On my independent interpretation, lung valladares are clear. There is normal cardiac silhouette. Bony thorax is normal. There is no acute process noted. Radiologist also interpreted the x-ray and agrees. Because of the patient's persistent pain, CT of the chest was obtained to assess for aortic dissection. There is no evidence of aortic dissection or pulmonary embolism. There is coronary artery calcification. There is mild bibasilar atelectasis. This was interpreted by the radiologist and was also independently reviewed by myself. EKG Initial EKG: Attestation: I personally reviewed and interpreted this EKG as follows: Interpretation: Sinus Bradycardia (57) and Non-Specific ST Changes (There is left ventricular hypertrophy with strain pattern.) Comments: EKG was obtained. On my independent interpretation, it showed a sinus bradycardia with a rate of 57. NM interval, QRS interval, and QTc intervals were all normal. Peck was normal. There is left ventricular hypertrophy with strain pattern noted. Prior EKG tracings: available for review Prior: Unchanged (09/22/2020) Treatment and Re-Evaluation :: Patient was given aspirin by EMS. Patient was given nitroglycerin by EMS. Patient was given a dose of morphine here. Patient was given a repeat dose of morphine. Patient was advised of his findings. Patient was advised of the need for hospitalization. Patient is agreeable with this. Case was discussed with the hospitalist. He will admit the patient to his service. Patient understood and was agreeable with the plan. All questions were answered. Discharge Plan Triage Chief Complaint: Chest Pain Other Complaint: Abd Pain Flank Pain ED Provider: Mulugeta Pinzon Dx/Rx/DC Orders Clinical Impression: Acute pancreatitis, Epigastric abdominal pain, Elevated blood pressure reading Prescriptions: No Action NK Primary Care Provider: Beena Killian Referrals: Beena Killian MD [Primary Care Provider] - Print Language: Comoran Disposition Disposition: [facility]
--- NOTE | 2024-04-30 11:10 | ED.RN ---
has seen pt but no orders placed at this time.
--- NOTE | 2024-04-30 11:20 | RAD_ITS ---
STUDY: X-RAY CHEST REASON FOR EXAM: Male, 64 years old. Chest pain TECHNIQUE: Single AP portable view of the chest. COMPARISON: Comparison is made with prior study of September 22, 2020. FINDINGS: EKG electrodes are seen. The lungs are clear and expanded. There is no demonstrated pleural abnormality. Sternal cerclage wires and vascular clips are present from a prior sternotomy and coronary artery bypass graft procedure (CABG). Borderline thyromegaly. Normal mediastinum and wicho. Normal visualized pulmonary arteries. There is atherosclerotic calcification of the aortic arch with tortuosity. Normal visualized thoracic spine. Normal visualized ribs, clavicles, and shoulders. There is no demonstrated abnormality of the visualized soft tissue structures of the upper abdomen. RAD/Chest 1 View (Portable) IMPRESSION: No acute abnormality is seen. Borderline cardiomegaly. Electronically Signed: Nelson Monzon MD at 12:00 EST ,
[2024-04-30 11:22] LABS: Absolute Lymphocyte Count 1.89 X10^3/uL (0.83-4.51); Absolute Neutrophil Count 6.5 X10^3/uL (2.0-7.7); Basophil# 0.06 X10^3/uL; Basophil% 0.6 % (0-1); Eosinophil# 0.21 X10^3/uL; Eosinophils% 2.2 % (0-5); Hematocrit 53.1 % (40-54); Hemoglobin 17.8 g/dL (13.0-16.5); Lymphocyte # 1.89 X10^3/ul (0.83-4.51); Lymphocyte % 19.6 % (19-41); Mean Corp Hgb Conc 33.5 g/dL (32-36); Mean Corpuscular Hgb 29.8 pg (27.0-32.0); Mean Corpuscular Volume 88.8 fL (80-94); Mean Platelet Vol. 10.8 fl (6.2-12.0); Monocyte# 0.91 X10^3/uL; Monocyte% 9.4 % (0-10); NRBC Flagged by Analyzer 0 % (0-5); Neutrophil # 6.54 X10^3/uL (2.7-7.7); Neutrophil % 67.9 % (47-70); Platelet Count 196 K/mm3 (150-450); RBC Distribution Width CV 12.7 % (11.6-14.6); RBC Distribution Width SD 41.7 fl (35.1-43.9); Red Blood Count 5.98 M/mm3 (4.6-6.2); White Blood Count 9.6 K/mm3 (4.4-11.0)
[2024-04-30] MEDS: Nitroglycerin SL (ED/IMG/CATH) 0.4 MG TABLET SL (11:38)
--- NOTE | 2024-04-30 11:38 | CT_ITS ---
STUDY: CTA CHEST REASON FOR EXAM: Male, 64 years old. Chest pain and back pain -- Rule out aortic dissection. 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 RADIATION DOSAGE (If Supplied By Facility): CTDIvol = ( 16.35 ) mGy, DLP = ( 632.59 ) mGycm TECHNIQUE: The examination was performed with the intravenous administration of IV 100mL Isovue-370. Post-processing of the angiographic images was performed, with multiplanar reformation and 3D reconstruction. Individualized dose optimization techniques were used for this CT. COMPARISON: Comparison is made with prior study dated September 22, 2020. FINDINGS: Stable small bilateral axillary lymph nodes. Normal enhancement of the main pulmonary artery and right and left pulmonary arteries. Normal enhancement of the bilateral peripheral pulmonary arteries. There is no demonstrated pulmonary embolism. There is atherosclerotic calcification of the aortic arch with tortuosity. There is no demonstrated aortic dissection. There are calcifications of the coronary arteries. Normal mediastinum. Normal hilar regions. Normal visualized trachea and bronchi. The lungs are well expanded. Mild degree of bibasilar atelectasis. Normal pleura. Normal chest wall structures. Normal osseous structures. There is a 1.1cm x 1.8 cm cyst in the upper medial aspect of the right lobe of the liver. CT/CTA Chest W/WO Contrast IMPRESSION: No evidence of aortic dissection. Coronary artery calcification. Mild degree of the dependent bibasilar atelectasis. Electronically Signed: Nelson Monzon MD at 12:15 EST ,
[2024-04-30] MEDS: Morphine 2 MG/ML Syringe IV (11:42)
[2024-04-30 11:51] LABS: ALB/GLOB Ratio 0.9 RATIO (0.9-2.4); AST(SGOT) 19 U/L (15-37); Alanine Aminotransfer ALT/SGPT 26 U/L (16-61); Albumin, Serum 3.8 g/dL (3.2-5.0); Alkaline Phosphatase 134 U/L (45-117); Anion Gap 5 (5-15); BUN 15 mg/dL (7-18); BUN/Creat Ratio 12.4 RATIO (10-20); Calcium,Total 9.7 mg/dL (8.5-10.1); Chloride 102 mmol/L (98-107); Creatinine, Serum 1.21 mg/dL (0.70-1.30); EST Glomerular Filtration Rate 64 mL/min (>60); Est Glom Filt Rate - Afr Amer 77 mL/min (>60); Estimated Creatinine Clearance 65.91 ml/min; Globulin 4.4 g/dL (2.2-4.2); Glucose 94 mg/dL (74-106); Lipase 745 U/L (13-75); Potassium 4.1 mmol/L (3.5-5.1); Protein, Total 8.2 g/dL (6.4-8.2); Sodium Level 138 mmol/L (136-145); Troponin-I HS (w/2H Reflex) 45 pg/mL (3.0-78.0)
[2024-04-30] MEDS: Morphine 4 MG/ML Syringe IV (12:50)
[2024-04-30 13:16] LABS: Reflex Troponin-HS? (from REC) Y
[2024-04-30] MEDS: HYDROmorphone 1 MG/ML Syringe 0.5 MG IV (13:59)
[2024-04-30 14:26] LABS: Troponin-I HS 37 pg/mL (3.0-78.0)
[2024-04-30] MEDS: oxyCODONE 5 MG Tablet PO (18:04)
[2024-04-30] MEDS: 0.9% Normal Saline (1000mL) 1,000 ML 175 ML IV ×2 (18:05→23:58)
--- NOTE | 2024-04-30 19:47 | PCM.HP.STD ---
HPI - General General Date of Admission: 04/30/24 Date of Service: 04/30/24 Chief Complaint: Abdominal pain HPI Narrative CLARICE PHILLIP, is a 64 M who presents to the emergency room at [facility] with a chief complaint of epigastric and lower chest pain which began yesterday. Patient states the pain is constant in nature and it radiates into the lower substernal area. Patient denies any nausea and vomiting. Patient was concerned it was due to withdrawal from methamphetamines that he uses, he has not used any in the last 4 days. Labs showed a normal CBC except for hemoglobin of 17.8, chemistry profile was unremarkable, alkaline phosphatase was slightly elevated 134 and lipase was 745. Chest CTA showed no evidence of aortic dissection, there was some bibasilar atelectasis noted. Patient will be admitted to [place] [address] for acute recurrent pancreatitis, he will be given IV fluids and IV analgesics, he was placed on a full liquid diet. [facility] Medical History Pancreatitis Hypertension Home Medications ?Medication ?Instructions ?Recorded ?Last Taken ?Type NK 04/30/24 Unknown History Allergy/AdvReac Type Severity Reaction Status Date / Time Penicillins Allergy Other Verified 04/30/24 10:05 Family History Other CAD (coronary artery disease) Cancer Surgical History History of open heart surgery History of carpal tunnel surgery Social History Smoking Status: Unknown if ever smoked details: Drinks occasionally. ROS Constitutional Constitutional: Denies anorexia, change in weight, chills, fatigue, fever(s), night sweats or weakness Eyes Eyes: Denies blurry vision, change in vision, discharge from eye(s) or eye pain Cardiovascular Cardiovascular: Denies chest pain, claudication, edema or palpitations Respiratory/Chest Respiratory/Chest: Denies cough, hemoptysis, shortness of breath at rest or shortness of breath with exertion Gastrointestinal Gastrointestinal: Reports abdominal pain; Denies constipation, diarrhea, dyspepsia, hematemesis, hematochezia, melena, nausea or vomiting Genitourinary Genitourinary: Denies dysuria, hematuria, urinary frequency, urinary hesitancy, urinary incontinence or urinary urgency Musculoskeletal Musculoskeletal: Denies back pain, joint pain, joint stiffness, joint swelling, myalgias or neck pain Neurologic Neurologic: Denies abnormal gait, abnormal speech, dizziness, focal weakness, headache(s), loss of vision, numbness, other visual disturbances, paresthesias, syncope or tingling Psychiatric Psychiatric: Denies anxiety, cognitive impairment, depression, irritability, mood swings or suicidal ideation Endocrine Endocrinology: Denies change in body appearance, cold intolerance, excessive sweating, heat intolerance, polydipsia or polyuria Hematologic/Lymphatic Hematologic/Lymphatic: Denies none, anemia, easy bleeding, easy bruising or lymphadenopathy Allergic/Immunologic Allergic/Immunologic: Denies rhinitis, urticaria, eczemia or asthma Vital Signs Vital Signs Vital Signs: 04/30/24 10:05 04/30/24 11:38 04/30/24 12:04 Temperature 98.1 F Temperature Source Oral Pulse Rate 64 50 L 64 Respiratory Rate 32 H 20 H Blood Pressure 144/85 H 131/117 H 177/87 H Blood Pressure Mean 104 117 Blood Pressure Source Blood Pressure Position Blood Pressure Location Pulse Ox 99 95 Oxygen Delivery Method Room Air Room Air 04/30/24 14:00 04/30/24 15:00 04/30/24 17:05 Temperature 98.0 F Temperature Source Pulse Rate 65 70 70 Respiratory Rate 16 16 16 Blood Pressure 173/94 H 168/88 H 165/87 H Blood Pressure Mean 120 114 113 Blood Pressure Source Blood Pressure Position Blood Pressure Location Pulse Ox 98 97 100 Oxygen Delivery Method Room Air Room Air 04/30/24 17:42 Temperature 98.3 F Temperature Source Temporal Pulse Rate 77 Respiratory Rate 18 Blood Pressure 159/84 H Blood Pressure Mean 109 Blood Pressure Source Monitor Blood Pressure Position Semi-Fowlers Blood Pressure Location Right Arm Pulse Ox 100 Oxygen Delivery Method Room Air Weight Weight: 91.626 kg Body Mass Index (BMI) 27.3 Physical Exam Const alert, oriented x3, no apparent distress and average body habitus General Appearance: cooperative, well kempt and well developed Orientation / Consciousness: awake, oriented to person, oriented to place and oriented to time HEENT normocephalic, head/scalp atraumatic, hearing grossly normal bilaterally and moist oral mucous membranes Eyes PERRL, EOMs intact bilaterally and conjunctivae normal Neck supple, no JVD, thyroid normal and no carotid bruits General: trachea midline Resp normal respiratory effort, no retractions, no use of accessory muscles and clear to auscultation bilaterally Auscultation: Negative for rales, rhonchi or wheezes Cardio regular rate, regular rhythm, S1 normal heart sound, S2 normal heart sound, no murmurs, no rub and no gallops GI normal to inspection, nondistended, normoactive bowel sounds, soft to palpation and non-distended GI Narrative: Patient has mild abdominal tenderness across the midportion of the abdomen to palpation, no rebound tenderness was noted Extremity no clubbing, cyanosis or edema Skin no rashes or lesions noted General Skin Exam: no breakdown Neuro oriented x3, CN's II-XII intact bilaterally, moves all extremities, no focal motor deficits and no sensory deficits noted Sensorium / Orientation: awake and alert Speech: speech normal Psych affect normal Results Lab / Micro Data 04/30/24 09:50 05/01/24 04:51 Labs: Laboratory Results - last 24 hr 04/30/24 09:50: WBC 9.6, RBC 5.98, Hgb 17.8 H, Hct 53.1, MCV 88.8, MCH 29.8, MCHC 33.5, RDW Std Deviation 41.7, RDW Coeff of Marquita 12.7, Plt Count 196, MPV 10.8, Immature Gran % (Auto) 0.300, Neut % (Auto) 67.9, Lymph % (Auto) 19.6, [place] % (Auto) 9.4, Eos % (Auto) 2.2, Baso % (Auto) 0.6, Absolute Neuts (auto) 6.5, Absolute Lymphs (auto) 1.89, Nucleated RBC % 0, Sodium 138, Potassium 4.1, Chloride 102, Carbon Dioxide 31.0, Anion Gap 5, BUN 15, Creatinine 1.21, Estim Creat Clear Calc 65.91, Est GFR (MDRD) Af Amer 77, Est GFR (MDRD) Non-Af 64, BUN/Creatinine Ratio 12.4, Glucose 94, Calcium 9.7, Total Bilirubin 0.40, AST 19, ALT 26, Alkaline Phosphatase 134 H, Troponin I High Sens 45, Total Protein 8.2, Albumin 3.8, Globulin 4.4 H, Albumin/Globulin Ratio 0.9, Lipase 745 H 04/30/24 14:00: Troponin I High Sens 37 Imaging Radiology Impression Chest X-Ray 04/30/24 11:20 IMPRESSION: No acute abnormality is seen. Borderline cardiomegaly. Electronically Signed: Nelson Monzon MD at 12:00 EST , Chest CTA 04/30/24 11:38 IMPRESSION: No evidence of aortic dissection. Coronary artery calcification. Mild degree of the dependent bibasilar atelectasis. Electronically Signed: Nelson Monzon MD at 12:15 EST , Assessment & Plan Assessment/Plan (1) Acute pancreatitis: PLAN: Plan 1. Acute recurrent pancreatitis-patient will be admitted to [facility] 3, he will be given IV fluids and placed on a full liquid diet, labs will be monitored as needed #2 methamphetamine substance use disorder-patient has not used methamphetamines in 4 days, complicates care, management, recovery, and prognosis Total clinical time spent by myself addressing the patient's medical issues, reviewing his data, and collaborating with patient's care team: 55 minutes Charges/Coding Visit Charges Inpatient E&M: 75740 Init Hosp L2
[2024-04-30] MEDS: Heparin Injection (Vial) 5,000 UNIT/ML VIAL 5000 UNIT SC (20:03)
[2024-04-30] MEDS: HYDROmorphone 1 MG/ML Syringe IV (20:04)
[2024-05-01 02:00] VITALS: BP 157/93; PULSE 83; RESP 16; TEMP 36.8; O2SAT 97
[2024-05-01] MEDS: 0.9% Normal Saline (1000mL) 1,000 ML 175 ML IV ×2 (05:13→11:29)
[2024-05-01 06:15] LABS: ALB/GLOB Ratio 0.9 RATIO (0.9-2.4); AST(SGOT) 44 U/L (15-37); Alanine Aminotransfer ALT/SGPT 54 U/L (16-61); Albumin, Serum 3.3 g/dL (3.2-5.0); Alkaline Phosphatase 146 U/L (45-117); Anion Gap 2 (5-15); BUN 12 mg/dL (7-18); BUN/Creat Ratio 10.7 RATIO (10-20); Calcium,Total 8.8 mg/dL (8.5-10.1); Chloride 105 mmol/L (98-107); Creatinine, Serum 1.12 mg/dL (0.70-1.30); EST Glomerular Filtration Rate 70 mL/min (>60); Est Glom Filt Rate - Afr Amer 84 mL/min (>60); Estimated Creatinine Clearance 71.21 ml/min; Globulin 3.6 g/dL (2.2-4.2); Glucose 108 mg/dL (74-106); Potassium 4.3 mmol/L (3.5-5.1); Protein, Total 6.9 g/dL (6.4-8.2); Sodium Level 136 mmol/L (136-145)
[2024-05-01 07:51] VITALS: BP 156/78; PULSE 85; RESP 14; TEMP 37.3; O2SAT 95
[2024-05-01] MEDS: HYDROmorphone 1 MG/ML Syringe IV ×2 (09:18→17:41)
[2024-05-01] MEDS: Heparin Injection (Vial) 5,000 UNIT/ML VIAL 5000 UNIT SC ×2 (09:43→20:44)
--- NOTE | 2024-05-01 10:24 | CASEMGMT ---
KULDIP ADAIR Assessment: Face to Face with pt for initial transition planning/care coordination assessment. KULDIP ADAIR introduced self and role at [facility], pt voices understanding and consents to assessment. Pt is A&O x4 and answers all questions appropriately at this time. Pt lying in bed in no distress. Care providers, pharmacy, and demographics verified/updated. Admitting Dx: recurrent pancreatitis Strata Score: 2 PCP:Constantin Specialists: Denies Preferred Pharmacy: [facility] Insurance: [facility] Prescription Benefit: yes LNOK: Deanne Reardon, sig other Living Arrangements: Pt lives with sig other in a two story home with 6 steps to enter. Pt reports he is I in ADL/IADLs and denies concerns at home. Transportation: Pt drives self and denies concerns with transportation. DME:Denies HHC/SNF: Denies hx of Pt states no concerns with going home at time of dc. Pt denies cigarettes and alcohol use. Pt states he does use meth. Pt denies need to speak to software applications specialist or SW as he states he already sees a counselor at [facility]. Pt states he is trying to stop using and has for 5 days. Pt states no further concerns/needs. CM to follow. Advised pt to ask CM if any further questions/concerns/needs arise, voices understanding. Pt Goal: Home Plan: Home Polly [facility] CM
[2024-05-01 13:19] VITALS: BP 149/80; PULSE 81; RESP 14; TEMP 36.9; O2SAT 97
--- NOTE | 2024-05-01 16:27 | NURSING ---
All documentation by psychiatric nursing aide José Juarez reviewed by nursing tech Latanya Camara BSN, RN.
[2024-05-01 17:50] VITALS: BP 148/75; PULSE 84; RESP 16; TEMP 36.7; O2SAT 98
--- NOTE | 2024-05-01 18:43 | PN.HOSP_ITS ---
Reason for Visit Reason for Visit: Diagnoses Acute pancreatitis without necrosis or infection, unspecified (04/30/24) Subjective Subjective Patient was seen and examined today, his abdominal pain is better, he would like his diet advanced if possible. I placed him on a regular diet. Objective Data Objective Data Vital Signs: Vital Signs Temp Pulse Resp BP Pulse Ox O2 Del Method 98.0 F 84 16 148/75 H 98 Room Air 05/01/24 17:50 05/01/24 17:50 05/01/24 17:50 05/01/24 17:50 05/01/24 17:50 05/01/24 17:50 Oxygen Delivery Method Room Air Weight: 91.626 kg Body Mass Index (BMI) 27.3 Intake & Output: Intake and Output for Last 24 Hours 04/29/24 04/30/24 05/01/24 23:59 23:59 23:59 Intake Total 1180 / 1180 2918.75 / 2918.75 Balance 1180 / 1180 2918.75 / 2918.75 Lab / Micro Data 04/30/24 09:50 05/01/24 04:51 Labs: Laboratory Results - last 24 hr 05/01/24 04:51: Sodium 136, Potassium 4.3, Chloride 105, Carbon Dioxide 29.0, A nion Gap 2 L, BUN 12, Creatinine 1.12, Estim Creat Clear Calc 71.21, Est GFR (MDRD) Af Amer 84, Est GFR (MDRD) Non-Af 70, BUN/Creatinine Ratio 10.7, Glucose 108 H, Calcium 8.8, Total Bilirubin 0.80, AST 44 H, ALT 54, Alkaline Phosphatase 146 H, Total Protein 6.9, Albumin 3.3, Globulin 3.6, Albumin/Globulin Ratio 0.9 Physical Exam Const alert, oriented x3, no apparent distress and healthy appearing General Appearance: cooperative, well kempt and well developed Orientation / Consciousness: awake, oriented to person, oriented to place and oriented to time HEENT normocephalic and moist oral mucous membranes Eyes PERRL, EOMs intact bilaterally and conjunctivae normal Neck supple, no JVD, thyroid normal and no carotid bruits General: trachea midline Resp normal respiratory effort and clear to auscultation bilaterally Auscultation: Negative for rales, rhonchi or wheezes Cardio regular rate, regular rhythm, no murmurs, no rub and no gallops GI normal to inspection, nondistended, normoactive bowel sounds, soft to palpation and non-distended GI Narrative: Patient has mild abdominal tenderness on palpation over the midportion of the abdomen Extremity no clubbing, cyanosis or edema Skin no rashes or lesions noted General Skin Exam: no breakdown Neuro oriented x3, CN's II-XII intact bilaterally, no focal motor deficits and no sensory deficits noted Sensorium / Orientation: awake and alert Speech: speech normal Psych affect normal Assessment & Plan Assessment/Plan (1) Acute pancreatitis: PLAN: Plan 1. Acute recurrent pancreatitis-patient's diet will be advanced, he will be given pain medications as required #2 methamphetamine substance use disorder-patient has not used methamphetamines in 4 days, complicates care, management, recovery, and prognosis Total clinical time spent by myself addressing the patient's medical issues, reviewing his data, and collaborating with patient's care team: 35 minutes Charges/Coding Visit Charges Inpatient E&M: 80662 Subs Hosp L2
[2024-05-01 20:37] VITALS: BP 156/81; PULSE 82; RESP 18; TEMP 37.3; O2SAT 98
[2024-05-02] MEDS: HYDROmorphone 1 MG/ML Syringe IV (02:39)
[2024-05-02] MEDS: 0.9% Saline Lock 10 ML Syringe IV (02:39)
[2024-05-02 02:44] VITALS: BP 152/87; PULSE 69; RESP 17; TEMP 37.1; O2SAT 98
[2024-05-02 08:46] VITALS: BP 152/78; PULSE 77; RESP 18; TEMP 36.6; O2SAT 98
[2024-05-02] MEDS: Heparin Injection (Vial) 5,000 UNIT/ML VIAL 5000 UNIT SC (10:08)
--- NOTE | 2024-05-02 11:56 | DCINST_ITS ---
Discharge Instructions Diet Discharge Diet: No restrictions DC O2, CPAP, BIPAP needs Home O2 Discharge instructions: No Dressing / Incision Discharge Activity: Return to Normal Activity Weight Bearing Status: Full weight bearing Follow Up Care Test Results: Test results from this visit will be discussed in further detail at your follow- up appointment, if applicable. Discharge Plan Admission Admit Date/Time: 04/30/24 12:56 Primary Reason for Your Visit: Recurrent pancreatitis Attending Provider: Sylvain Nolasco Primary Care Provider: Beena Killian Discharge Orders/Prescriptions Prescriptions: New oxycodone 5 mg tablet 5 mg PO Q6H PRN (Reason: pain) 4 Days Qty: 15 0RF ofloxacin 0.3 % drops See Rx Instructions .ROUTE .COMPLEX Qty: 5 0RF Rx Instructions: put 1-2 drps into affected eye(s) every 2-4 h x 2 days, then 1-2 drps 4 times/day days 3-7 Referrals / Follow Up: Beena Killian MD [Primary Care Provider] - Within 1 Month Disposition Disposition (needs filled in before D/C Order can be placed): Home, Self Care
[2024-05-02 12:01] VITALS: BP 116/65; PULSE 82; RESP 18; TEMP 36.6; O2SAT 96
--- NOTE | 2024-05-02 13:12 | PCM.DC.SUM ---
Providers Date of Admission: 04/30/24 Date of Discharge: 05/02/24 Primary Care Physician: Dr. Beena Killian MD Reason For Visit: RECURRENT PANCREATITIS Diagnosis Discharge Diagnosis (1) Acute pancreatitis: Status: Acute Code(s): K85.90 - Acute pancreatitis without necrosis or infection, unspecified Plan 1. Acute recurrent pancreatitis-patient will be admitted to [place] [address], he will be given IV fluids and placed on a full liquid diet, labs will be monitored as needed #2 methamphetamine substance use disorder-patient has not used methamphetamines in 4 days, complicates care, management, recovery, and prognosis #3 bacterial conjunctivitis of the left eye Total clinical time spent by myself addressing the patient's medical issues, reviewing his data, and collaborating with patient's care team: 55 minutes Medications at Discharge Home Medications ofloxacin 0.3 % eye drops See Rx Instructions EACH EYE .COMPLEX #5 mL 05/02/24 oxycodone 5 mg tablet 5 mg PO Q6H PRN pain 4 days #15 tabs 05/02/24 Hospital Course Operations None Procedures None Summary of Care Provided Minutes Spent on Discharge: 30 Hospital Course: This 64-year-old white male was seen in the emergency room at [facility] with complaints of abdominal pain. Labs obtained in the emergency room revealed his lipase to be elevated and he was found to have acute recurrent pancreatitis. Patient was admitted to [place] [address] and given IV pain medications, he improved during his hospital stay but required oral pain medications at the time of discharge home. On 05/02/2024, patient was seen and examined: On examination he appeared in good health and spirits. Vital signs as documented. Skin warm and dry and without overt rashes. Neck without JVD, neck was supple, trachea midline, thyroid was normal. Lungs clear bilaterally, normal air movement was noted. Heart exam notable for regular rhythm, normal sounds and absence of murmurs, rubs or gallops. Abdomen unremarkable and without evidence of organomegaly, masses, or abdominal aortic enlargement. Bowel sounds are present, abdomen is not distended. Extremities nonedematous, no cyanosis was noted, no clubbing was noted. Neuro: Cranial nerves II through XII are grossly intact, no focal motor deficits were noted, sensation to light touch and pinprick intact, motor exam 5/5 throughout. Psych: Patient is alert and oriented x3, he does not appear anxious or depressed, he does not appear agitated. Patient appears stable for discharge home on 05/02/2024 Weight / BMI Weight Weight: 91.626 kg Body Mass Index (BMI) 27.3 ABG / Lab / Microbiology Data 04/30/24 09:50 05/01/24 04:51 D/C Instructions Discharge Diet: No restrictions Weight Bearing Status: Full weight bearing DC O2, CPAP, BIPAP Needs Home O2 Discharge instructions: No Meaningful Use Info Meaningful Use Meaningful Use Diagnoses (Choose all that apply): None applicable Ischemic Stroke Statin Dosing Therapy Reference: STATIN DOSE THERAPY REFERENCE: * Patients > 75 years receive moderate or high dose statin therapy. * Patients 75 years or YOUNGER should receive HIGH intensity statin dose unless contraindicated. You will be required to document reason for non-treatment if statin daily dose does not meet guidelines. HIGH DOSE STATIN THERAPY DAILY Atorvastatin > than or = to 40 mg Rosuvastatin > than or = to 20 mg Amlodipine + Atorvastatin > than or = to 2.5/40 mg Ezetimibe + Simvastatin 10/80 mg Simvastatin 80mg Discharge Plan Admission Admit Date/Time: 04/30/24 12:56 Primary Reason for Your Visit: Recurrent pancreatitis Attending Provider: Sylvain Nolasco Primary Care Provider: Beena Killian Discharge Orders/Prescriptions Prescriptions: New oxycodone 5 mg tablet 5 mg PO Q6H PRN (Reason: pain) 4 Days Qty: 15 0RF ofloxacin 0.3 % drops See Rx Instructions .ROUTE .COMPLEX Qty: 5 0RF Rx Instructions: put 1-2 drps into affected eye(s) every 2-4 h x 2 days, then 1-2 drps 4 times/day days 3-7 Referrals / Follow Up: Beena Killian MD [Primary Care Provider] - Within 1 Month Disposition Disposition (needs filled in before D/C Order can be placed): Home, Self Care Charges/Coding Visit Charges Inpatient E&M: 11236 Disch Hosp
[2024-05-02] MEDS: oxyCODONE 5 MG Tablet PO (13:40)
== END 2024-05-02 16:41 | disposition home or self-care (01) | DRG 440 ==
LOC: ED 13:09 → MS3 16:32
PROVIDERS: Admitting Provider Internal Medicine; Emergency Provider Emergency Medicine; PCP Internal Medicine; Visit Provider Internal Medicine
DX: K85.90 Acute pancreatitis without necrosis or infection, unspecified (principal); F15.90 Other stimulant use, unspecified, uncomplicated; I10 Essential (primary) hypertension; H10.022 Other mucopurulent conjunctivitis, left eye
CPT/HCPCS: 36415; 71045; 71275; 80053; 83690; 84484; 85025; 93005; 99285; Q9967; A4216